=== PATIENT | female | born 1950 | race Caucasian/White ===

== ENCOUNTER 2022-12-07 06:48 | Outpatient (CLI) | payer MEDICARE, SELFPAY ==
--- NOTE | ~2022-12-07 | MR_ITS ---
EXAMINATION: MR brain/brain stem wo con DATE: 12/07/2022 07:50 INDICATION: Persistent vertigo. TECHNIQUE: Magnetic resonance imaging (MRI) of the brain and brainstem was performed without intraven ous contrast. COMPARISON: None. FINDINGS: There are scattered areas of nonspecific increased T2-weighted signal intensity in the cere bral white matter and colette, which is within normal limits for the patient's age. There is no intracra nial hemorrhage, acute infarction, or abnormal intracranial mass lesion. The ventricles are normal in size. The orbits are normal. There is mild mucosal thickening in the paranasal sinuses. The mastoid air cells are normal. IMPRESSION: 1. Normal aging brain. Reviewed, dictated and finalized at location A. SMAKER GARMENT FITTER IMPRESSION: 1. Normal aging brain.
== END 2022-12-07 06:49 | disposition home or self-care (01) ==
LOC: CHSIMG 06:50
PROVIDERS: PCP Family Medicine; Visit Provider Family Medicine
DX: R42 Dizziness and giddiness (principal)
CPT/HCPCS: 70551

== ENCOUNTER 2023-07-30 14:54 | Outpatient (CLI) | payer MEDICARE, SELFPAY ==
--- NOTE | 2023-07-30 15:00 | ECHO_ITS ---
Patient Info Name: Zoila Angulo Age: 73 years : 1950 Gender: Female Ht: 64 in Wt: 172 lbs BSA: 1.90 m2 HR: 85 bpm BP: 170 / 90 mmHg Heart Rhythm: Sinus Rhythm Technical Quality: Good Exam Date: 07/30/2023 2:50 PM Exam Location: [facility] Patient Status: Outpatient Admit Date: 07/30/2023 Staff Ordering Physician: Alpesh Mead MD Community Development Aide: Jaya Lynch RDCS Attending Provider: Alpesh Mead MD Referring Physician: Boston BAIG; Exam Type: CA echo doppler color flow Study Info Indications - localized edema Complete two-dimensional, color flow and Doppler transthoracic echocardiogram is performed. Summary 1. Complete two-dimensional, color flow and Doppler transthoracic echocardiogram is performed. 2. Left ventricular chamber dimension is normal. 3. Left ventricular systolic function is normal, estimated at 60-65%. 4. The left ventricular diastolic function is abnormal. 5. E/e' 12 is mildly elevated. 6. There is mild to moderate mitral valve regurgitation. 7. There is mild tricuspid valve regurgitation. 8. No pulmonary hypertension, estimated pulmonary arterial systolic pressure is 30 mmHg. Left Ventricle E/e' 12 is mildly elevated. Left ventricular chamber dimension is normal. Left ventricular systolic function is normal, estimated at 60-65%. The left ventricular diastolic function is abnormal. Right Ventricle Right ventricular systolic function is normal and with normal TAPSE 2.5 cm. Right ventricular chamber dimension is normal. Left Atria Left atrial chamber dimension is normal. Right Atria Right atrial chamber dimension is normal. Aortic Valve The aortic valve is trileaflet. There is no aortic valve stenosis. There is no aortic valve regurgitation. Pulmonic Valve There is no pulmonic regurgitation. Mitral Valve There is no mitral valve stenosis. There is mild to moderate mitral valve regurgitation. Tricuspid Valve There is mild tricuspid valve regurgitation. No pulmonary hypertension, estimated pulmonary arterial systolic pressure is 30 mmHg. Pericardium/Pleural There is no pericardial effusion. Inferior Vena Cava Normal inferior vena cava with >50% collapse upon inspiration consistent with normal right atrial pressure, 5 mmHg. Aorta The aortic root size at the sinus of Valsalva is normal. Left Ventricular Outflow Tract Name Value Normal LVOT 2D LVOT Diameter 1.9 cm LVOT Doppler LVOT Peak Velocity 87 cm/s LVOT Peak Gradient 3 mmHg LVOT Mean Gradient 2 mmHg LVOT VTI 26 cm LVOT VTI/AV VTI Ratio 0.8 LVOT Stroke Volume 75 ml Pulmonic Valve Name Value Normal RVOT Doppler RVOT Peak Gradient 1 mmHg PV Doppler
== END 2023-07-30 14:55 | disposition home or self-care (01) ==
LOC: CHSIMG 14:55
PROVIDERS: PCP Family Medicine; Visit Provider Family Medicine
DX: R60.0 Localized edema (principal); I08.1 Rheumatic disorders of both mitral and tricuspid valves
CPT/HCPCS: 93306

== ENCOUNTER 2024-12-23 10:05 | Outpatient (CLI) | payer MEDICARE, SELFPAY ==
--- NOTE | ~2024-12-23 | XR_ITS ---
XR chest 2V Ordering provider: Alpesh Mead MD History: 74 years Female with . Subacute Cough X5DAYS . Comparison: None. FINDINGS: MEDIASTINUM: The cardiac silhouette is not enlarged. LUNGS: No effusions or pneumothorax. Minimal opacification in the left lung base medially which may i ndicate atelectasis versus pneumonia. Follow-up advised. 5 mm Small nodule in the right midzone perip herally. 3 months follow-up advised. OTHER: No free air under the diaphragm. IMPRESSION: Left basal atelectasis versus pneumonia. 5 mm nodule in the right midzone. 3 months follow-up x-rays advised. Reviewed, dictated and finalized at location A. PICKER
[2024-12-23 10:43] LABS: Basophils Absolute Auto 0.04 K/mm3 (0.00-0.10); Basophils Percent Auto 0.2 % (0.0-1.0); Eosinophils Absolute Auto 0.01 K/mm3 (0.02-0.50); Eosinophils Percent Auto 0.1 % (1.0-6.0); Hematocrit 35.7 % (35.0-42.0); Hemoglobin 11.8 g/dL (11.7-13.8); Immature Granulocyte Absolute 0.11 K/mm3 (0.00-0.00); Immature Granulocyte Percent A 0.6 % (0.0-0.0); Lymphocytes Absolute Auto 0.81 K/mm3 (1.10-4.50); Lymphocytes Percent Auto 4.7 % (18.0-42.0); Mean Corpuscular HGB Conc 33.1 g/dL (32-36); Mean Corpuscular Hemoglobin 29.7 pg (27.0-31.0); Mean Corpuscular Volume 89.9 fL (78.0-102.0); Mean Platelet Volume 10.3 fl (9.2-11.8); Monocytes Absolute Auto 1.72 K/mm3 (0.10-0.90); Neutrophils Absolute Auto 14.44 K/mm3 (1.70-7.20); Neutrophils Percent Auto 84.4 % (50.0-70.0); Platelet Count Result 189 K/mm3 (150-420); Red Blood Count 3.97 M/mm3 (4.20-5.40); Red Cell Distribution Width 12.6 % (11.6-14.4); White Blood Count 17.1 K/mm3 (4.8-10.8)
[2024-12-23 10:52] LABS: Add Urine Microscopic? YES; Appearance Urine Cloudy (Clear); Bilirubin Urine Negative (Negative); Blood Urine 2+ (Negative); Color Urine Yellow (Yellow); Glucose Urine UA Negative (Negative); Ketones Urine 1+ (Negative); Leukocyte Esterase Ur 3+ LEU/UL (Negative); Nitrate Urine Positive (Negative); Protein Urine 2+ (Negative); Urobilinogen Urine 0.2 mg/dL (0.2-1.0); pH Urine 7.5 (5.0-8.0)
[2024-12-23 10:55] LABS: RBC Urine None seen /hpf (0-2)
[2024-12-23 10:56] LABS: Bacteria Urine 2+ /hpf; Renal Epithelial Cells Urine Few /hpf; Squamous Epithelial Cell Urine Few /hpf (Few); WBC Urine >75 /hpf (0-3)
--- OUTSIDE RECORDS SUMMARY | 2024-12-23 11:22 | XMS_ITS | Encounter Summary ---
Author Organization [facility] Address [facility] [place] [address] Care Team Providers Care Railroad Carman Name Role Phone Alpesh Mead MD Primary Care Provider [phone] Kathia Chen MD Unavailable Encounter Details Date Type Department Care Team (Latest Contact Info) Description 04/08/2024 MyChart Message Enc [facility] [address] [place] [address] Kathia Chen MD [address] [place] [address] Pulsatile Tinnitus Social History Tobacco Use Types Packs/Day Years Used Date Smoking Tobacco: Never Smokeless Tobacco: Never Comments Unknown Sex and Gender Information Value Date Recorded Sex Assigned at Female 11/14/2024 8:05 AM LOAN PROCESSOR Legal Sex Female 4:56 PM CDT Gender Identity Not on file Sexual Orientation Not on file documented as of this encounter Plan of Treatment Upcoming Encounters Date Type Department Care Team (Late st Contact Info) Description 10/30/2025 8:45 AM LOAN PROCESSOR Office Visit [facility] [address] Kathia Chen MD [address] [place] [address] documented as of this encounter Visit Diagnoses Not on filedocumented in this encounter Care Teams Railroad Carman Relationship Specialty Start Date End Date Aplesh Mead MD [address] [place], [place] [id number] PCP - General FAMILY PRACTICE 08/02/23 Kathia Chen MD [address] [place] [address] Consulting Physician CARDIOVASCULAR DISEASE 02/06/24 documented as of this encounter
--- OUTSIDE RECORDS SUMMARY | 2024-12-23 11:22 | XMS_ITS | Encounter Summary ---
Author Organization [facility] Address [facility] [place] [address] Care Team Providers Care Light Armored Vehicle Officer Name Role Phone Alpesh Mead MD Primary Care Provider [phone] Tristan Hall MD Unavailable Unavailabl e Adenike Pleitez APRN, IT SUPPORT CONSULTANT-C Unavailable [phone] Kathia Chen MD Unavailable Encounter Details Date Type Department Care Team (Latest Contact Info) Description 09/03/2023 GoodClict Message Enc [facility] [address] [place] [address] Adenike Pleitez APRN, IT SUPPORT CONSULTANT-C [address] [facility] [address] [place] [address] My one week follow up on Spironolactone 25mg Social History Tobacco Use Types Packs/Day Years Used Date Smoking Tobacco: Never Smokeless Tobacco: Never Comments Unknown Sex and Gender Information Value Date Recorded Sex Assigned at Female 11/14/2024 8:05 AM COOK ENCHILADA Legal Sex Female 4:56 PM CDT Gender Identity Not on file Sexual Orientation Not on file documented as of this encounter Plan of Treatment Upcoming Encounters Date Type Department Care Team (Late st Contact Info) Description 10/30/2025 8:45 AM COOK ENCHILADA Office Visit [facility] [place] [address] Kathia Chen MD [address] [place] [address] documented as of this encounter Visit Diagnoses Not on filedocumented in this encounter Care Teams Light Armored Vehicle Officer Relationship Specialty Start Date End Date Alpesh Mead MD [address] [place] [address] PCP - General FAMILY PRACTICE 08/02/23 Tristan Hall MD [address] [place] [address] Consulting Physician CARDIOVASCULAR DISEASE 08/24/23 Adenike Pleitez APRN, IT SUPPORT CONSULTANT-C [address] [facility] [address] [address] NURSE PRACTITIONER 08/24/23 02/05/24 Kathia Chen MD [address] [place] [address] Consulting Physician CARDIOVASCULAR DISEASE 02/06/24 documented as of this encounter
--- OUTSIDE RECORDS SUMMARY | 2024-12-23 11:22 | XMS_ITS | Referral Summary ---
Author Organization [facility] [address] [place] [address] Care Team Providers Care Test Engine Operator Name Role Phone Alpesh Mead MD Primary Care Provide r Encounters Date Type Department Care Team Description 10/17/2024 Telephone [facility] [address] [place] [phone] Alena Montoya LPN CTA head results and recommendations from Last 3 Months Allergies Active Allergy Reactions Criticality Noted Date Comments Codeine Other (See comments) Low 08/06/2024 Jittery/shaky Medications spironolactone (ALDACTONE) 50 mg tablet Take 1 tablet (50 mg total) by mouth daily Active oi-uaz-nzade acid-lutein 400-250 mcg tablet,chewable Take by mouth Active calcium izfs-U0-ioldqjk um tony 133 mg calcium -133 unit-67 mg capsule Take by mouth Active biotin 1 mg tablet Take 3 tablets (3,000 mcg total) by mouth 3 (three) times a day Active turmeric root extract 500 mg capsule Take 750 mg by mouth Active glucosamine HCl 1,500 mg tablet Take by mouth Active loratadine 10 mg capsule Take by mouth Activ e fluticasone propionate (FLONASE) 50 mcg/actuation nasal spray Administer 1 spray into each nostril daily Active Active Problems Problem Noted Date Diagnosed Date Tinnitus of left ear 08/06/2024 Assessment & Plan (08/06/2024 8:32 PM CDT): She continues to have pulsatile tinnitus involving her left ear for almost 2 years now. I think it is probably vascular in etiology. I discussed possibility such as a vascular loop or a dehiscent jugular bulb. I would like to evaluate with a temporal bone CT scan and after further discussion she would like to do this also. We will schedule it. I will call her with results and suggestions. A vascular loop would be better evaluated with an MRI scan of the IAC's. She has had a negative MRI scan of her head and I indicated this would be more specific. She understands. Neck pain on left side 08/06/2024 Assessment & Plan (08/06/2024 8:33 PM CDT): She describes neck pain high up in the left side of her neck and on exam she has slight tenderness over the area of the carotid artery. She also has a significant TMJ problem with popping. Both of these could be causing this pain. It also could be due to cervical strain. I am not sure if I have anything further to recommend for that. She still is bothered by her neck pain but it has significantly improved since the original onset in November of 2022. She could consider some physical therapy for this. Peripheral vertigo 08/06/2024 Assessment & Plan (08/06/2024 8:30 PM CDT): I suspect she may be suffering from benign positional vertigo. I talked with her about potential evaluation and treatment. She would like to go ahead and pursue that. Social History Tobacco Use Types Packs/Day Years Used Date Smoking Tobacco: Never Tobacco Cessation:Counseling Given: Not Answered Comments Unknown Sex and Gender Information Value Date Recorded Sex Assigned at Not on file Legal Sex Female 6:25 PM CORN SHELLER OPERATOR Gender Identity Not on file Sexual Orientation Not on file Last Filed Vital Signs Vital Sign Reading Time Taken Comments Blood Pressure - - Pulse - - Temperature - - Respiratory Rate 18 08/06/2024 3:05 PM CDT Oxygen Saturation - - Inhaled Oxygen Concentration - - Weight 76.7 kg (169 lb) 08/28/2024 11:49 AM CORN SHELLER OPERATOR Height 162.6 cm (5' 4 ) 08/28/2024 11:49 AM CORN SHELLER OPERATOR Body Mass Index 29.01 08/28/2024 11:49 AM CORN SHELLER OPERATOR Plan of Treatment Not on file Insurance [employer] MEDICARE Care Teams Test Engine Operator Relationship Specialty Start Date End Date Alpesh Mead MD [address] [place] [address] PCP - General Family Medicine 07/21/24
--- OUTSIDE RECORDS SUMMARY | 2024-12-23 11:22 | XMS_ITS | Data Portability ---
Author Organization [facility], [address] [place] [address] Neurology ([place]) Address [address] [place] [address] Care Team Providers Care Felt Hanger Name Role Phone GUME MAHER Driver Salesman DORIS LINO Driver Salesman Assessment Encounter Date Assessment Date Assessment LastModified by Organization Details LastModified Time 05/27/2024 05/27/2024 1. Acne: We discussed the diagnosis and treatment alternatives.Clind amycin gel was prescribed. Call for refill of Retin-A, continue spironolactone 50 mg per cardiology. . The patient was instructed to call if not improving with the prescribed regimen. Skin care was discussed. Side effects of topical retinoids including skin irritation and photosensitivity were discussed. The potential for allergic reaction was discussed.I asked her to apply a very thin film of this medication to the affected areas q.h.s. 20-30 minutes after washing the face. Should patient experience skin irritation, the frequency of application may be decreased to q.o. h.s. for a week or two and then increased to q.h.s. as tolerated. . Patient will call with any questions or problems regarding this medication. 2 cyst: We discussed the fact that these are benign lesions requiring no treatment. The patient was advised that more such lesions may develop. The patient is not bothered by the lesions and does not wish to have them treated. We will observe. Return in 1 year for recheck with Dr Jones. Zoila left without further questions or concerns. [email or web address] Not available 05/27/2024 17:12:14 Plan of Treatment Reminders Order Date Submit Date Provider Last Modified By Organization Details Last Modified Time Details Appointments Establis [facility] Patient 10.EST 2024 10:50A M Dr. Dona Jones Not available Not available Not available Lab None recorded . Referral None recorded . Procedures None recorded . Surgeries None recorded . Imaging MAMMO, screenin g, digital, bilatera l 2023 025 [email or web address] [place] Only - [place] Radiology, [address] [place] [address], [id number], 07/15/2024 12:50:39 Medication Orders clindamy curt 1 % topical gel 2023 024 [facility] 54 [facility], [address] [place], [address], 05/27/2024 17:11:22 Patient TargetsNo targets recorded. Patient Instructions Encounter Date Encounter Id Patient Instructions Last Modified By Organization Details Last Modified Time 07/15/2024 [id number] Pap smear guidelines discussed. No Pap smear required. Self-breast exam instructions reviewed. Healthy diet and exercise was encouraged. ROS completed and reviewed today. Patient states that she gets routine blood work annually through PCP. Mammogram screening recommended. I discussed with the patient that her last screening mammogram showed heterogeneously or extremely dense breast tissue. We discussed 50% of women have dense breasts and this can obscure small mass on mammogram and slightly increase the woman's risk of breast cancer. I explained that bilateral breast MRI or whole breast bilateral ultrasounds are recommended for those who have dense tissue along with 1 other risk factor. The patient does not have risk factors at this time. Tyrer-Cuzick breast cancer assessment score was calculated 2021, and her life time risk is 16%. Encouraged pt to remain up to date with colonoscopy screening. Bone health discussed. Encouraged calcium and vitamin D supplementation. Will repeat bone density scan 2025. Post-menopausal bleeding precautions were given. Patient to return to clinic in 1 year for annual or sooner if any issues. All questions were answered. [email or web address] Not available 07/15/2024 12:41:25 Reason for Referral None Reported. Results Created Date Observation Date Name Description Value Unit Range Abnormal Flag Note LastModifiedBy Organization Detail LastModifiedTime 07/15/2007/15/2024 MAMMO , scree esther, digit al, bilat eral [facility] [address] [address] Teleph one [phone] Name: SAMANTHA HARDY [id number] am Date: 2023 Age: 74Phys ician: JORGE MAHER AMANDA : 1Ex aminat ion: MAMM BILATE RAL DIGITA L SCREEN ING EXAM: MAMM BILATE RAL DIGITA L SCREEN ING, MAMM SCREEN ING TOMOSY NTHESI S ACCESS ION: [id number], [id number] EXAM DATE: 024 10:45 AM HISTOR Y: Screen ing. COMPAR AKILA: Prior studie s dating back to 05/27/20 20. DENSIT Y: The breast s are hetero geneou sly dense, which may obscur e small masses . FINDIN GS: 2D digita l compos ite views as well as 3D digita l tomosy nthesi s views were perfor med. There are no suspic ious masses , calcif icatio ns, or areas of margarita ectura l distor tion. IMPRES STANISLAV: There is no mammog raphic eviden ce of malign ney. ASSESS MENT: BI-RAD S 1: Negati ve. RECOMM ENDATI ON: 1. Screen ing Mammog andrés Bilate ral in 1 year. COMMEN TS: The patien t will be entere d into an automa rafael remind er system for a screen ing mammog andrés in 1 year. The patien t has been or will be contac rafael with the result s of this exam. Electr onical ly signed in Sharp cribe by: Abel Daly MD on:06/23 10:29 AM cc: Page PAGE 1 of NUMPAG ES 1 [email or web address] [place] Only - [place] Radiology [address] [place] [address], [address], 07/15/2024 12:50:51 Result Notes None recorded. Problems Name Problem SNOMED Code Status Onset Date Resolution Date Notes Provider Name and Address Organization Details Recorded Time Epidermoid cyst 766756774 Active 024 Mitchel Zhang PA-C [address] [place] [address], [phone], [facility] 4 16:21:08 Acne 37850646 Active 024 Kermit Flores [facility] 4 16:54:55 Osteopenia 431974332 Active 024 Gume Maher PA-C [address] [place] [address], [phone], [facility] 4 12:38:29 Heart murmur 37125411 Active 024 Gume Maher PA-C [address] [place] [address], [phone], [facility] 4 12:41:29 Problem Notes None recorded. Procedures Surgical History Date Name Laterality Status Provider Name and Address Organization Details Recorded Time Colonoscopy with biopsy completed Not Available Health Note 05/20/2024 17:41:53 biopsy of breast completed Gume Bowman [facility] 07/14/2024 20:05:30 Imaging Results Imaging Date Name Status LastModified by Organiz ation Details LastModified Time 07/15/2024 MAMMO, screening, digital, bilateral completed [address] Only - [place] Radiology [facility], [address], 07/15/2024 12:50:51 Procedure Notes None recorded. Medical Equipment None Reported. Allergies Allergen ID Allergen Name Allergen Category Reaction Reaction Severity Criticality Documentation Date Start Date Code Code System Note Provider Name and Address Organization Details Recorded Time 496334 codeine medicatio n Not available Not available Not available 11/19/20232011 2670 RxNorm Not Available Not Available Not Available Medications Name Sig Start Date Stop Date Status Note LastModified by Organization Details LastModified Time tretinoin 0.1 % topical cream APPLY SPARINGLY TO AFFECTED AREA(S) ONCE DAILY AT BEDTIME. active Not Available Not Available No t Available spironolact one 25 mg tablet TAKE 1 TABLET BY MOUTH ONCE DAILY 07/15 completed Not Available Not Available Not Available clindamycin 1 % topical gel APPLY A THIN LAYER OF GEL TO THE AFFECTED AREA(S) TWICE DAILY NEEDED active Not Available Not Available No t Available fluticasone propionate 50 mcg/actuati on nasal spray,suspe nsion USE 1-2 SPRAYS IN EACH NOSTRIL ONCE DAILY NEEDED active Not Available Not Available No t Available spironolact one 50 mg tablet TAKE 1 TABLET BY MOUTH ONCE DAILY active Not Available Not Available No t Available Vitals Date Recorded Body height Body mass index (BMI) Body weight Heart rate Oxygen saturation Oxygen saturation in Arterial blood by Pulse oximetry Systolic blood pressure Diastolic blood pressure Provider Name and Address Organization Details Last Updated DateTime 4 162.56 cm 29.5 kg/m2 93603.8 9 g 77 /min 99 % 99 % 156 mm[Hg] 76 mm[Hg] Kermit Flores [facility] 4 16:06:18 Date Recorded Body height Body mass index (BMI) Body weight Systolic blood pressure Diastolic blood pressure Provider Name and Address Organization Details Last Updated DateTime 07/15/2024 162.56 cm 29.5 kg/m2 32598.89 g 126 mm[Hg] 80 mm[Hg] Gume Bowman [facility] 4 11:35:05 Social History Question Answer Notes LastModified by Organizat ion Details LastModified Time Tobacco Smoking Status Never Smoker Gume Bowman [facility] 07/15/2024 11:31:59 Do You Have An Advance Directive? Yes [email or web address] Information not available 05/20/2024 What Is Your Level Of Alcohol Consumption? None [email or web address] Information not available 05/20/2024 What Is Your Level Of Caffeine Consumption? Occasional [email or web address] Information not available 05/20/2024 What Is Your Code Status? Full Code [email or web address] Information not available 05/20/2024 Are You Currently Employed? No [email or web address] Information not available 05/20/2024 What Is Your Occupation? Retired [email or web address] Information not available 05/20/2024 How Many Times Per Week Do You Exercise? 3-4 Times Per Week [email or web address] Information not available 05/20/2024 Do You Have A Medical Power Of Meter Readers Supervisor? Yes [email or web address] Information not available 05/20/2024 What Was The Date Of Your Most Recent Tobacco Screening? 05/27/2024 [email or web address] Information not available 05/20/2024 What Is Your Relationship Status? Single [email or web address] Information not available 05/20/2024 Do You Use Any Illicit Or Recreational Drugs? No [email or web address] Information not available 05/20/2024 Sex: Unknown Functional Status Question Answer Note LastModified by Organization D etails LastModified Time What is your exercise level? Moderate [email or web address] Information not available 05/20/2024 Mental Status None recorded. Family History Relationship Description Onset Age of this Age Resolved Age Notes LastModified by Organization Details LastModified Time Mother Alzheimer's disease [email or web address] Not available 2023 17:41:53 Mother Hypertensive disorder [email or web address] Not available 2023 17:41:53 Sister Hypercholest erolemia [email or web address] Not available 2023 17:41:53 Sister Malignant neoplasm of female breast dx at 51 [email or web address] Not available 07/14/2024 20:07:03 Sister Malignant neoplasm of female breast dx at 63 [email or web address] Not available 07/14/2024 20:07:08 Father Diabetes mellitus [email or web address] Not available 07/14 20:05:45 Father Family history of cancer of colon [email or web address] Not available 07/14 20:05:55 Paternal Grandmother Malignant neoplasm of female breast dx in her 70's Not available 07/14/2024 20:06:42 Medical History Condition Response High Blood Pressure N COPD N Depression N Anxiety Disorder N Arthritis N Cancer N Stroke N Fibromyalgia N Kidney Disease N Bleeding Disorder N Asthma N Seizures N Attention-deficit Hyperactivity Disorder N Thyroid Problems N Anemia N Diabetes N Hyperlipidemia N Heart Disease N Osteoporosis N Gynecological HistoryNo gynecological history recorded. Obstetrics History GPAL:G 0 P 0 0 0 0 Past Encounters Encounter ID Performer Location Encounter Start Date Encounter Closed Date Diagnosis/Indication Diagnosis SNOMED-CT Code Diagnosis ICD10 Code Diagnosis Note [id number] ZOILA Patel D[facility] ([place]) [address] [place] [address] [place] [address] 05/27/2024 15:50:31 05/27/2024 16:15:02 Epidermoid cyst 912418837 L72.0 Acne 88854535 L70.9 [id number] Doris Lino MD 900 [facility] OBGYN ([place]) [address] [place] [address] 07/15/2024 11:27:12 07/15/2024 12:55:33 Routine gynecologic examination 753162546 Z01.419 Additional diagnosis detail: Women's annual routine gynecologi ileana examinatio n Screening mammography 24 375577 Z12.31 Additional diagnosis detail: Screening mammogram for breast cancer Health Concerns Section Related Observation LastModified by Organization Detai ls LastModified Time None Recorded Concern Status LastModified by Organization Details LastModified Time None Recorded Advance Directives Directive Y: Payers Encounter Date Sequence Insurance Name Policy Number Policy Navarrete Covered Member ID Navarrete Member ID Guarantor Name 05/27/2024 1 [employer] (MEDICARE REPLACEMENT PPO) [id number] 1 Zoila Angulo [id number] Zoila Angulo 07/15/2024 1 [employer] (MEDICARE REPLACEMENT PPO) [id number] Zoila Angulo [id number] Zoila Angulo Notes Date Note Type Note Provider Name and Address Organization Details Recorded Time 05/27/2024 text/html {{EPV* NPV - Ref er to Dermatology Patient History form in the EHR and has been reviewed and signed. Please refer to this form for Past Medical History, Family History, and additional Social History.}} Date last seen: 12/21/2021 Gown: No Patient presents today for a recheck of acne. Date last seen for acne: 12/21/2021 Current prescription medications used and frequency: Tretinoin 0.1% cream Areas of involvement: Cheeks Current over the counter products used: Neutrogena wash, CeraVe moisturizer/sunscreen Problems with acne medications: {{Yes- No*}} Progress of acne since last visit: Flaring Other concerns: Lesion on back - Several years, asymptomatic Ms. Angulo was informed that Dr. Jones is the supervising physician for MITCHEL ZHANG (Derm) and the physician is in the office available for consultation. History of Present Illness documented by nursing staff, verified and amended as necessary by the attending provider who electronically signs this note. Mitchel Zhang PA-C [address] [place] [address], [phone], [facility] 05/27/2024 17:12:35 07/15/2024 text/html Patient here for : annual examShe is a P:2 Patient complaints: nonePatient denies pelvic pain, abnormal vaginal discharge, breast problems, urinary symptoms, vasomotor symptoms, mood changes and bowel problems. Smoking status: Not a smokerThe patient completes self-breast exams: YesThe patient has adequate calcium intake: YesThe patient eats healthy diet: YesThe patient exercises routinely: Yes Post menopausal, no bleeding STD screening: DeclinesSexually active: Yes Changes in medical/surgical history since her last office visit: NoHereditary Breast and Ovarian cancer screen: 3Changes in [facility] h/o since last HBOCS form was completed: No Last Mammogram: 07/15/2024Last Bone Density: 04/18/2016, osteopenia, 10 year follow upLast Colonoscopy: 2016 per patient Last pap: 03/25/2015 performed by: DANTE result: Negative, Negative HR HPVHistory of Abnormal pap: No History of Gestational Diabetes: NoHistory of Gestational Hypertension: No Hepatitis C: NoGardasil: N/A Gume Maher PA-C [address] [place] [address], [phone], [facility] 07/16/2024 08:37:42 OBGyn Episode No OBEpisode recorded.
--- OUTSIDE RECORDS SUMMARY | 2024-12-23 11:22 | XMS_ITS | Clinical Summary ---
Author Organization [facility] [address] [place] Address [address] [place] [address] Care Team Providers Care Access Analyst Name Role Phone Alpesh Mead MD Primary Care Provide r Allergies Active Allergy Reactions Criticality Noted Date Comments Codeine Other (See comments) Low 08/06/2024 Jittery/shaky Medications spironolactone (ALDACTONE) 50 mg tablet Take 1 tablet (50 mg total) by mouth daily Active ec-hvm-lsrzl acid-lutein 400-250 mcg tablet,chewable Take by mouth Active calcium dwkh-F1-tlrnoab um tony 133 mg calcium -133 unit-67 [...] like to go ahead and pursue that. Encounters Date Type Department Care Team Description 10/17/2024 Telephone [facility] Otolaryngology [address] [place] [phone] Alena Montoya LPN CTA head results and recommendations from Last 3 Months Surgical History Surgery Date Site/Laterality Comments COLONOSCOPY 10/22/2018 - 10/21/2019 Medical History Medical History Date Comments Allergies Tinnitus Pulsatile Dizziness Family History Medical History Relation Name Comments Diabetes Brother Cancer Father colon Cancer Paternal Grandmother breast (mastectomy) Cancer Sister Breast X 2 sist ers Relation Name Status Comments Brother Father Paternal Grandmother Sister Social History Tobacco Use Types Packs/Day Years Used Date Smoking Tobacco: Never Tobacco Cessation:Counseling Given: Not Answered Comments Unknown Sex and Gender Information Value Date Recorded Sex Assigned at Not on file Legal Sex Female 6:25 PM NECK BAND SETTER Gender Identity Not on file Sexual Orientation Not on file Obstetrics History Last Filed Vital Signs Vital Sign Reading Time Taken Comments Blood Pressure - - Pulse - - Temperature - - Respiratory Rate 18 08/06/2024 3:05 PM CDT Oxygen Saturation - - Inhaled Oxygen Concentration - - Weight 76.7 kg (169 lb) 08/28/2024 11:49 AM NECK BAND SETTER Height 162.6 cm (5' 4 ) 08/28/2024 11:49 AM NECK BAND SETTER Body Mass Index 29.01 08/28/2024 11:49 AM NECK BAND SETTER Plan of Treatment Health Maintenance Due Date Last Done Comments Breast Cancer Screening-Mammogram 1951 Colon Cancer Screening-Colonoscopy 1950 Depression Screening 1951 Fall Risk Assessment 1950 Hepatitis C Screening 1950 Osteoporosis Screening-Bone Density Scan 1951 Hepatitis B Screening 1969 Pneumococcal vaccine 65+ (1 of 1 - PCV) 2001 Well Visit 65+ 02/19/2016 Covid-19 Vaccine (2023-2 5 season) 2025 07/23/2024, 08/24/2023, 08/19/2022, Additional history exists DTaP/Tdap/Td Vaccine (2 - Td or Tdap) 06/01/2027 06/01/2017 Zoster Vaccine Completed 06/18/2022, 02/19, 05/06/2013 Influenza Vaccine Completed 07/23/2024, , 08/19/2022, Additional history exists Insurance [employer] MEDICARE [facility] MED[facility] Address: [facility] [id number] [place] [phone] Care Teams Access Analyst Relationship Specialty Start Date End Date Alpesh Mead MD [address] [place] [address] PCP - General Family Medicine 07/21/24
--- OUTSIDE RECORDS SUMMARY | 2024-12-23 11:22 | XMS_ITS | Encounter Summary ---
Author Organization [facility] Address [facility]ly [facility] [place] [address] Care Team Providers Care Hospital Technician Name Role Phone Alpesh Mead MD Primary Care Provider [phone] Tristan Hall MD Unavailable Unavailabl e Adenike Pleitez APRN, [employer]-[facility] Unavailable Kathia Chen MD Unavailable Encounter Details Date Type Department Care Team (Late st Contact Info) Description 10/31/2023 MyChart Message Enc [facility] eld [address] [place] [address] Adenike Pleitez APRN, [employer]-C [address] [facility] [address] [place] [address] Labs Social History Tobacco Use Types Packs/Day Years Used Date Smoking Tobacco: Never Smokeless Tobacco: Never Comments Unknown Sex and Gender Information Value Date Recorded Sex Assigned at Female 11/14/2024 8:05 AM AMUSEMENT OR RECREATION CARD CHECKER Legal Sex Female 4:56 PM CDT Gender Identity Not on file Sexual Orientation Not on file documented as of this encounter Plan of Treatment Upcoming Encounters Date Type Department Care Team (Late Contact Info) Description 10/30/2025 8:45 AM AMUSEMENT OR RECREATION CARD CHECKER Office Visit [facility] [place] [address] Kathia Chen MD [address] [place] [address] documented as of this encounter Visit Diagnoses Not on filedocumented in this encounter Care Teams Hospital Technician Relationship Specialty Start Date End Date Alpesh Mead MD [address] [place] [address] PCP - General FAMILY PRACTICE 08/02/23 Tristan Hall MD [address] [place] [address] Consulting Physician CARDIOVASCULAR DISEASE 08/24/23 Adenike Pleitez, GUME, [facility] [employer]-C [address] [facility] [address] [place] [address] NURSE PRACTITIONER 08/24/23 02/05/24 Kathia Chen MD [address] [place] [address] Consulting Physician CARDIOVASCULAR DISEASE 02/06/24 documented as of this encounter
--- OUTSIDE RECORDS SUMMARY | 2024-12-23 11:22 | XMS_ITS | Clinical Summary ---
Author Organization [facility] Address [address] [place] [address] Care Team Providers Care Department Mgr Name Role Phone Alpesh Mead MD Primary Care Provider [phone] Kathia Ventura MD Unavailable Allergies Active Allergy Reactions Criticality Noted Date Comments Codeine GI Upset,Shakiness 08/24/2023 Medications tretinoin (RETIN-A) 0.1 % cream APPLY CREAM SPARINGLY TO AFFECTED AREA(S) ONCE DAILY AT BEDTIME. 3 Active spironolactone (ALDACTONE) 50 MG tablet Take 1 tablet by mouth once daily 90 tablet 4 Active Active Problems Problem Noted Date Diagnosed Date Mitral regurgitation 08/24/2023 Encounters Date Type Department Care Team Description 11/14/2024 8:30 AM WEIGHER PRODUCTION Office Visit [facility] [address] [place] [phone] Kathia Ventura MD Heart Problem 11/14/2024 8:05 AM WEIGHER PRODUCTION - 11/14/2024 11:59 PM WEIGHER PRODUCTION Hospital [facility] [place] [address] Kathia Ventura MD Discharge Disposition: Home or Self Care (Routine Discharge) 11/14/2024 Travel 11/12/2024 Orders Only [facility] eld [address] [place] [address] Kathia Ventura MD 10/06/2024 1:08 PM WEIGHER PRODUCTION - 10/06/2024 11:59 PM WEIGHER PRODUCTION Hospital Encounter [place] [address] [place] [address] Edgard Pascal MD Discharge Disposition: Home or Self Care (Routine Discharge) 10/06/2024 Travel from Last 3 Months Family History Medical History Relation Comments Cancer Father Dementia Mother Relation Status Comments Father Mother Social History Tobacco Use Types Packs/Day Years Used Date Smoking Tobacco: Never Smokeless Tobacco: Never Tobacco Cessation:Counseling Given: Not Answered Alcohol Use Standard Drinks/Week Comments Not Currently 0 (1 standard drink = 0.6 oz pur e alcohol) Comments Unknown Sex and Gender Information Value Date Recorded Sex Assigned at Female 11/14/2024 8:05 AM WEIGHER PRODUCTION Legal Sex Female 4:56 PM CDT Gender Identity Not on file Sexual Orientation Not on file Last Filed Vital Signs Vital Sign Reading Time Taken Comments Blood Pressure 131/66 11/14/2024 11:47 AM WEIGHER PRODUCTION Pulse 76 11/14/2024 11:47 AM WEIGHER PRODUCTION Temperature - - Respiratory Rate 18 11/14/2024 11:47 AM WEIGHER PRODUCTION Oxygen Saturation 96% 11/14/2024 11:47 AM WEIGHER PRODUCTION Inhaled Oxygen Concentration - - Weight 79.8 kg (176 lb) 11/14/2024 11:47 AM WEIGHER PRODUCTION Height 162.6 cm (5' 4 ) 11/14/2024 11:47 AM WEIGHER PRODUCTION Body Mass Index 30.21 11/14/2024 11:47 AM WEIGHER PRODUCTION Plan of Treatment Upcoming Encounters Date Type Department Care Team (Late st Contact Info) Description 10/30/2025 8:45 AM WEIGHER PRODUCTION Office Visit [facility] [address] [place] [phone] Kathia Ventura MD [address] [place] [address] Health Maintenance Due Date Last Done Comments Colorectal Cancer Screening Colonoscopy (10 Years) 1950 Pneumococcal Vaccine: 65+ Years (1 of 2 - PCV) 1957 Hepatitis C 1969 Mammogram Screening 1991 RSV Immunization or 60+ Years (1 - Risk 60-74 years 1-dose series) 2011 Annual Medicare Wellness Visit 02/19/2016 Dexa Scan (General) 02/19/2016 COVID-19 Vaccine ( season) 2024 08/19/2022, 03/03/2022, 08/12/2021, Additional history exists Influenza Adult (#1) 2024 08/24/2023, 08/10/2020, 08/22/2019, Additional history exists DTaP, Tdap and Td Vaccines (2 - Td or Tdap) 06/01/2027 06/01/2017 Zoster Vaccines Completed 06/18/2022, 02/19, 05/06/2013 Meningococcal B Vaccine Aged Out No l onger eligible based on patient's age to complete this topic Meningococcal Vaccine Aged Out No supriya katty eligible based on patient's age to complete this topic RSV Immunizations Under 20 Months Aged Out No longer eligible based on patient's age to complete this topic Procedures Procedure Name Priority Date/Time Associated Diagnosis Comments ECG 12-LEAD Routine 11/14/2024 8:14 AM WEIGHER PRODUCTION Nonrheumatic mitral valve regurgitation Procedure Note - 11/14/2024 8:14 AM CSTThis note is in progress. [address] [place] [address] Test Date: 2024-11-14 Pat Name: LYNN ANGULO Department: 3 Room: Gender: Female Vat Operator: : 1950 Requested By: KATHIA VENTURA Order Number: [id number] Reading MD: Measurements Intervals Bigelow Rate: 75 P: 86 AK: 192 QRS: 84 QRSD: 75 T: 78 QT: 372 QTc: 416 Interpretive Statements SINUS RHYTHM WITH FREQUENT SUPRAVENTRICULAR PREMATURE COMPLEXES ABNORMAL RHYTHM ECG CTA HEAD Routine 10/06/2024 2:02 PM WEIGHER PRODUCTION Tinnitus of left ear Cavernous sinus syndrome from Last 3 Months Results * CTA HEAD (10/06/2024 2:02 PM WEIGHER PRODUCTION) Anatomical Region Laterality Modality Head Computed Tomogra phy 10/13/2024 8:49 AM WEIGHER PRODUCTION Impressions 10/13/2024 9:54 AM WEIGHER PRODUCTION IMPRESSION: Patent intracranial arterial vasculature. Ordered By: EDGARD PASCAL Interpreted By: Jacob Portillo MD, 10/13/2024 8:49 AM Narrative 10/13/2024 9:54 AM WEIGHER PRODUCTION [address] [place] [address] Examination: CTA HEAD, 10/06/2024 2:02 PM. Technique: Computed tomographic images of the head were obtained after the administration of 93 mL of Isovue-370 injected through the IV, without evidence of an adverse reaction. Additional coronal and sagittal reformatted as well as maximum intensity projection images were generated at a separate workstation. A dose lowering technique was used for this procedure, which may include, but is not limited to, dose reduction technique, automated exposure control, the use of iterative reconstruction, and ALARA (As Low As Reasonably Achievable) / Image Gently techniques. Clinical history: Tinnitus, left ear, fullness of left cavernous sinus seen on prior CT IAC Comparison: CT IACs 08/18/2024 Findings: The petrous and cavernous portions of the internal carotid arteries are patent. Anterior cerebral arteries are patent. The middle cerebral arteries are patent. Codominant vertebral artery posterior circulation. The basilar artery is patent. Prominent posterior communicating arteries bilaterally. There is no extra-axial fluid collection. Preserved quintanilla-white matter differentiation. The basal cisterns appear normal. Orbital contents appear normal. Paranasal sinuses and mastoid air cells are well aerated. Procedure Note Jacob Portillo MD - 10/13/[address] [place] [address] Examination: CTA HEAD, 10/06/2024 2:02 PM. Technique: Computed tomographic images of the head were obtained after theadministration of 93 mL of Isovue-370 injected through the IV, withoutevidence of an adverse reaction. Additional coronal and sagittalreformatted as well as maximum intensity projection images were generatedat a separate workstation. A dose lowering technique was used for thisprocedure, which may include, but is not limited to, dose reductiontechnique, automated exposure control, the use of iterativereconstruction, and ALARA (As Low As Reasonably Achievable) / Image Gentlytechniques. Clinical history: Tinnitus, left ear, fullness of left cavernous sinusseen on prior CT IAC Comparison: CT IACs 08/18/2024 Findings: The petrous and cavernous portions of the internal carotid arteries arepatent. Anterior cerebral arteries are patent. The middle cerebralarteries are patent. Codominant vertebral artery posterior circulation.The basilar artery is patent. Prominent posterior communicating arteriesbilaterally. There is no extra-axial fluid collection. Preserved quintanilla-white matterdifferentiation. The basal cisterns appear normal. Orbital contents appearnormal. Paranasal sinuses and mastoid air cells are well aerated. IMPRESSION: Patent intracranial arterial vasculature. Ordered By: EDGARD PASCAL Interpreted By: Jacob Portillo MD, 10/13/2024 8:49 AM us Edgard Pascal MD CT Final Result from Last 3 Months Insurance [employer] Care Teams Department Mgr Relationship Specialty Start Date End Date Alpesh Mead MD [address] [place] [address] PCP - General FAMILY PRACTICE 08/02/23 Kathia Ventura MD [address] [place] [address] Consulting Physician CARDIOVASCULAR DISEASE 02/06/24
--- OUTSIDE RECORDS SUMMARY | 2024-12-23 11:22 | XMS_ITS | Encounter Summary ---
Author Organization [facility] Address [facility] [place] [address] Care Team Providers Care Head Men'S Golf Coach Name Role Phone Alpesh Mead MD Primary Care Provider [phone] Kathia Chen MD Unavailable Encounter Details Date Type Department Care Team (Latest Contact Info) Description 04/29/2024 MyChart Message Enc [facility] [address] [place] [address] Kathia Chen MD [address] [place] [address] Results of my Blood Tests Social History Tobacco Use Types Packs/Day Years Used Date Smoking Tobacco: Never Smokeless Tobacco: Never Alcohol Use Standard Drinks/Week Comments Not Currently 0 (1 standard drink = 0.6 oz pur e alcohol) Comments Unknown Sex and Gender Information Value Date Recorded Sex Assigned at Female 11/14/2024 8:05 AM HOME SPECIALIST Legal Sex Female 4:56 PM CDT Gender Identity Not on file Sexual Orientation Not on file documented as of this encounter Plan of Treatment Upcoming Encounters Date Type Department Care Team (Late st Contact Info) Description 10/30/2025 8:45 AM HOME SPECIALIST Office Visit [facility] [address] [place] [address] Kathia Chen MD [address] [place] [address] documented as of this encounter Visit Diagnoses Not on filedocumented in this encounter Care Teams Head Men'S Golf Coach Relationship Specialty Start Date End Date Alpesh Mead MD [address] [place] [address] PCP - General FAMILY PRACTICE 08/02/23 Kathia Chen MD [address] [place] [address] Consulting Physician CARDIOVASCULAR DISEASE 02/06/24 documented as of this encounter
--- OUTSIDE RECORDS SUMMARY | 2024-12-23 11:22 | XMS_ITS | Encounter Summary ---
Author Organization [facility] Address [facility] [place] [address] Care Team Providers Care Circuit Board Inspector Name Role Phone Alpesh Mead MD Primary Care Provider [phone] Kathia Chen MD Unavailable Encounter Details Date Type Department Care Team (Late Contact Info) Description 05/13/2024 [employer] Message [facility] ie [address] [place] [phone] [facility] Provider Lab results Social History Tobacco Use Types Packs/Day Years Used Date Smoking Tobacco: Never Smokeless Tobacco: Never Alcohol Use Standard Drinks/Week Comments Not Currently 0 (1 standard drink = 0.6 oz pur e alcohol) Comments Unknown Sex and Gender Information Value Date Recorded Sex Assigned at Female 11/14/2024 8:05 AM BRYOLOGIST Legal Sex Female 4:56 PM CDT Gender Identity Not on file Sexual Orientation Not on file documented as of this encounter Plan of Treatment Upcoming Encounters Date Type Department Care Team (Late Contact Info) Description 10/30/2025 8:45 AM BRYOLOGIST Office Visit [facility] [place] [phone] Kathia Chen MD [address] [place], [place] [address] documented as of this encounter Visit Diagnoses Not on filedocumented in this encounter Care Teams Circuit Board Inspector Relationship Specialty Start Date End Date Alpesh Mead MD [address] [place] [address] PCP - General FAMILY PRACTICE 08/02/23 Kathia Chen MD [address] [place] [address] Consulting Physician CARDIOVASCULAR DISEASE 02/06/24 documented as of this encounter
--- OUTSIDE RECORDS SUMMARY | 2024-12-23 11:22 | XMS_ITS | Encounter Summary ---
Author Organization [facility] Address [facility] [place] [address] Care Team Providers Care Food Service Representative Name Role Phone Alpesh Mead MD Primary Care Provider [phone] Kathia Chen MD Unavailable Encounter Details Date Type Department Care Team (Late Contact Info) Description 04/22/2024 [employer] Message [facility] ie [address] [place] [phone] [facility] Provider echo Social History Tobacco Use Types Packs/Day Years Used Date Smoking Tobacco: Never Smokeless Tobacco: Never Alcohol Use Standard Drinks/Week Comments Not Currently 0 (1 standard drink = 0.6 oz pur e alcohol) Comments Unknown Sex and Gender Information Value Date Recorded Sex Assigned at Female 11/14/2024 8:05 AM SPEECH COMMUNICATION INSTRUCTOR Legal Sex Female 4:56 PM CDT Gender Identity Not on file Sexual Orientation Not on file documented as of this encounter Plan of Treatment Upcoming Encounters Date Type Department Care Team (Late Contact Info) Description 10/30/2025 8:45 AM SPEECH COMMUNICATION INSTRUCTOR Office Visit [facility] [place] [place] [phone] Kathia Chen MD [address] [place] [address] documented as of this encounter Visit Diagnoses Not on filedocumented in this encounter Care Teams Food Service Representative Relationship Specialty Start Date End Date Alpesh Mead MD [address] [place] [address] PCP - General FAMILY PRACTICE 08/02/23 Kathia Chen MD [address] [place] [address] Consulting Physician CARDIOVASCULAR DISEASE 02/06/24 documented as of this encounter
[2024-12-23 11:42] LABS: Alanine Aminotransferase 30 U/L (14-59); Albumin Level 2.8 g/dL (3.4-5.0); Alkaline Phosphatase 116 U/L (46-116); Amylase 20 U/L (25-115); Anion Gap 9 mmol/L (4-12); Aspartate Amino Transferase 22 U/L (15-37); Bilirubin,Total 0.9 mg/dL (0.00-1.00); Blood Urea Nitrogen 22 mg/dL (7-18); Carbon Dioxide 28 mmol/L (21-32); Chloride 93 mmol/L (98-108); Estimated Glomerular Filt Rate 28; Glucose 118 mg/dL (70-99); Lipase 17 U/L (16-77); Osmolality Calculated 274 mOsm/kg (285-295); Sodium 130 mmol/L (136-145); Total Protein 6.3 g/dL (6.4-8.2)
[2024-12-24 17:39] LABS: Toxigenic C. Diff NEGATIVE (NEGATIVE)
== END 2024-12-23 10:06 | disposition home or self-care (01) ==
PROVIDERS: PCP Family Medicine; Visit Provider Family Medicine
DX: R82.90 Unspecified abnormal findings in urine (principal); R10.9 Unspecified abdominal pain
CPT/HCPCS: 36415; 71046; 80053; 81001; 82150; 83690; 85025; 87045; 87086; 87181; 87186; 87427; 87449; 87493

== ENCOUNTER 2024-12-24 16:22 | Outpatient (CLI) | payer MEDICARE, SELFPAY ==
[2024-12-24 17:39] LABS: Toxigenic C. Diff NEGATIVE (NEGATIVE)
--- OUTSIDE RECORDS SUMMARY | 2024-12-24 17:45 | XMS_ITS | Encounter Summary ---
Author Organization [facility] Address [facility] [place] [address] Care Team Providers Care Clinical Educator Name Role Phone Alpesh Mead MD Primary Care Provider [phone] Tristan Hall MD Unavailable Unavailabl e Adenike Pleitez APRN, CLINICAL BIOSTATISTICIAN-C Unavailable Kathia Chen MD Unavailable Encounter Details Date Type Department Care Team (Late st Contact Info) Description 10/31/2023 MyChart Message Enc [facility] eld [address] [place] [address] Adenike Pleitez APRN, CLINICAL BIOSTATISTICIAN-C [address] [facility] [address] [place] [address] Labs Social History Tobacco Use Types Packs/Day Years Used Date Smoking Tobacco: Never Smokeless Tobacco: Never Comments Unknown Sex and Gender Information Value Date Recorded Sex Assigned at Female 11/14/2024 8:05 AM SHEET HEATER HELPER Legal Sex Female 4:56 PM CDT Gender Identity Not on file Sexual Orientation Not on file documented as of this encounter Plan of Treatment Upcoming Encounters Date Type Department Care Team (Late Contact Info) Description 10/30/2025 8:45 AM SHEET HEATER HELPER Office Visit [facility] [place] [address] Kathia Chen MD [address] [place] [address] documented as of this encounter Visit Diagnoses Not on filedocumented in this encounter Care Teams Clinical Educator Relationship Specialty Start Date End Date Alpesh Mead MD [address] [place] [address] PCP - General FAMILY PRACTICE 08/02/23 Tristan Hall MD [address] [place] [address] Consulting Physician CARDIOVASCULAR DISEASE 08/24/23 Adenike Pleitez, GUME, CLINICAL BIOSTATISTICIAN-C [address] [facility] [address] [place] [address] NURSE PRACTITIONER 08/24/23 02/05/24 Kathia Chen MD [address] [place] [address] Consulting Physician CARDIOVASCULAR DISEASE 02/06/24 documented as of this encounter
--- OUTSIDE RECORDS SUMMARY | 2024-12-24 17:45 | XMS_ITS | Encounter Summary ---
Author Organization [facility] Address [facility] [place] [address] Care Team Providers Care Call Center Dispatcher Name Role Phone Alpesh Mead MD Primary Care Provider [phone] Kathia Chen MD Unavailable Encounter Details Date Type Department Care Team (Late Contact Info) Description 05/13/2024 [employer] Message [facility] ie [address] [place] [phone] [facility] Provider Lab results Social History Tobacco Use Types Packs/Day Years Used Date Smoking Tobacco: Never Smokeless Tobacco: Never Alcohol Use Standard Drinks/Week Comments Not Currently 0 (1 standard drink = 0.6 oz pur e alcohol) Comments Unknown Sex and Gender Information Value Date Recorded Sex Assigned at Female 11/14/2024 8:05 AM GLOBAL SALES MANAGER Legal Sex Female 4:56 PM CDT Gender Identity Not on file Sexual Orientation Not on file documented as of this encounter Plan of Treatment Upcoming Encounters Date Type Department Care Team (Late Contact Info) Description 10/30/2025 8:45 AM GLOBAL SALES MANAGER Office Visit [facility] [place] [phone] Kathia Chen MD [address] [place], [place] [address] documented as of this encounter Visit Diagnoses Not on filedocumented in this encounter Care Teams Call Center Dispatcher Relationship Specialty Start Date End Date Alpesh Maed MD [address] [place] [address] PCP - General FAMILY PRACTICE 08/02/23 Kathia Chen MD [address] [place] [address] Consulting Physician CARDIOVASCULAR DISEASE 02/06/24 documented as of this encounter
--- OUTSIDE RECORDS SUMMARY | 2024-12-24 17:45 | XMS_ITS | Clinical Summary ---
Author Organization [facility] [address] Address [address] [place] [address] Care Team Providers Care Machine Stapler Name Role Phone Alpesh Mead MD Primary Care Provide r Allergies Active Allergy Reactions Criticality Noted Date Comments Codeine Other (See comments) Low 08/06/2024 Jittery/shaky Medications spironolactone (ALDACTONE) 50 mg tablet Take 1 tablet (50 mg total) by mouth daily Active df-kzt-bprct acid-lutein 400-250 mcg tablet,chewable Take by mouth Active calcium ckao-U0-ypxjczf um tony 133 mg calcium -133 unit-67 [...] Type Department Care Team Description 10/17/2024 Telephone [facility] Otolaryngology [address] [place] [phone] Alena Montoya LPN CTA head results [...] on file Legal Sex Female 6:25 PM BURNER MACHINE OPERATOR Gender Identity Not on file Sexual Orientation Not on file Obstetrics History Last Filed Vital Signs Vital Sign Reading Time Taken Comments Blood Pressure - - Pulse - - Temperature - - Respiratory Rate 18 08/06/2024 3:05 PM CDT Oxygen Saturation - - Inhaled Oxygen Concentration - - Weight 76.7 kg (169 lb) 08/28/2024 11:49 AM BURNER MACHINE OPERATOR Height 162.6 cm (5' 4 ) 08/28/2024 11:49 AM BURNER MACHINE OPERATOR Body Mass Index 29.01 08/28/2024 11:49 AM BURNER MACHINE OPERATOR Plan of Treatment Health Maintenance Due Date [...] 08/19/2022, Additional history exists Insurance [employer] MEDICARE Care Teams Machine Stapler Relationship Specialty Start Date End Date Alpesh Mead MD [address] [place] [address] PCP - General Family Medicine 07/21/24
--- OUTSIDE RECORDS SUMMARY | 2024-12-24 17:45 | XMS_ITS | Referral Summary ---
Author Organization [facility] [address] [place] Address [address] [place] [address] Care Team Providers Care Central Service Technician Name Role Phone Alpesh Mead MD Primary Care Provide r Encounters Date Type Department Care Team Description 10/17/[address] [facility] Otolaryngology [address] [place] [address] Alena Montoya LPN CTA head results and recommendations from Last 3 Months Allergies Active Allergy Reactions Criticality Noted Date Comments Codeine Other (See comments) Low 08/06/2024 Jittery/shaky Medications spironolactone (ALDACTONE) 50 mg tablet Take 1 tablet (50 mg total) by mouth daily Active vf-tya-tiwav acid-lutein 400-250 mcg tablet,chewable Take by mouth Active calcium crrk-P2-tokbdco um tony 133 mg calcium -133 unit-67 [...] on file Legal Sex Female 6:25 PM TAKE OUT WAITER Gender Identity Not on file Sexual Orientation Not on file Last Filed Vital Signs Vital Sign Reading Time Taken Comments Blood Pressure - - Pulse - - Temperature - - Respiratory Rate 18 08/06/2024 3:05 PM CDT Oxygen Saturation - - Inhaled Oxygen Concentration - - Weight 76.7 kg (169 lb) 08/28/2024 11:49 AM TAKE OUT WAITER Height 162.6 cm (5' 4 ) 08/28/2024 11:49 AM TAKE OUT WAITER Body Mass Index 29.01 08/28/2024 11:49 AM TAKE OUT WAITER Plan of Treatment Not on file Insurance [employer] MEDICARE Care Teams Central Service Technician Relationship Specialty Start Date End Date Alpesh Mead MD [address] [place] [address] PCP - General Family Medicine 07/21/24
--- OUTSIDE RECORDS SUMMARY | 2024-12-24 17:45 | XMS_ITS | Encounter Summary ---
Author Organization [facility] Address [facility] [place] [address] Care Team Providers Care Seal Delivery Vehicle Officer Name Role Phone Alpesh Mead MD Primary Care Provider [phone] Tristan Hall MD Unavailable Unavailabl e Adenike Pleitez APRN, ASSISTANT PROFESSOR OF PHILOSOPHY-C Unavailable Kathia Chen MD Unavailable Encounter Details Date Type Department Care Team (Latest Contact Info) Description 09/03/2023 [employer] Message Enc [facility] [address] [place] [address] Adenike Pleitez APRN, ASSISTANT PROFESSOR OF PHILOSOPHY-C [address] [facility] [address] [place] [address] My one week follow up on Spironolactone 25mg Social History Tobacco Use Types Packs/Day Years Used Date Smoking Tobacco: Never Smokeless Tobacco: Never Comments Unknown Sex and Gender Information Value Date Recorded Sex Assigned at Female 11/14/2024 8:05 AM SUMO WRESTLER Legal Sex Female 4:56 PM CDT Gender Identity Not on file Sexual Orientation Not on file documented as of this encounter Plan of Treatment Upcoming Encounters Date Type Department Care Team (Late st Contact Info) Description 10/30/2025 8:45 AM SUMO WRESTLER Office Visit [facility]-[address] [place] [address] Kathia Chen MD [address] [place] [address] documented as of this encounter Visit Diagnoses Not on filedocumented in this encounter Care Teams Seal Delivery Vehicle Officer Relationship Specialty Start Date End Date Alpesh Mead MD [address] [place] [address] PCP - General FAMILY PRACTICE 08/02/23 Tristan Hall MD [address] [place] [address] Consulting Physician CARDIOVASCULAR DISEASE 08/24/23 Adenike Pleitez APRN, ASSISTANT PROFESSOR OF PHILOSOPHY-C 9 [facility] [address] [address] NURSE PRACTITIONER 08/24/23 02/05/24 Kathia Chen MD [address] [place] [address] Consulting Physician CARDIOVASCULAR DISEASE 02/06/24 documented as of this encounter
--- OUTSIDE RECORDS SUMMARY | 2024-12-24 17:45 | XMS_ITS | Clinical Summary ---
Author Organization [facility] Address [address] [place] [address] Care Team Providers Care Farmer Diversified Crops Name Role Phone Alpesh Mead MD Primary Care Provider [phone] Kathia Ventura MD Unavailable Allergies Active Allergy [...] Department Care Team Description 11/14/2024 8:30 AM SWITCHBOARD WIRER Office Visit [facility] [address] [place] [phone] Kathia Ventura MD Heart Problem 11/14/2024 8:05 AM SWITCHBOARD WIRER - 11/14/2024 11:59 PM SWITCHBOARD WIRER [facility] [place] [address] Kathia Ventura MD Discharge Disposition: Home or Self Care (Routine Discharge) 11/14/2024 Travel 11/12/2024 Orders Only [facility] eld [address] [place] [address] Kathia Ventura MD 10/06/2024 1:08 PM SWITCHBOARD WIRER - 10/06/2024 11:59 PM SWITCHBOARD WIRER Hospital Encounter [place] [address] [place] [address] Edgard Pascal MD Discharge Disposition: Home or [...] Sex Assigned at Female 11/14/2024 8:05 AM SWITCHBOARD WIRER Legal Sex Female 4:56 PM CDT Gender Identity Not on file Sexual Orientation Not on file Last Filed Vital Signs Vital Sign Reading Time Taken Comments Blood Pressure 131/66 11/14/2024 11:47 AM SWITCHBOARD WIRER Pulse 76 11/14/2024 11:47 AM SWITCHBOARD WIRER Temperature - - Respiratory Rate 18 11/14/2024 11:47 AM SWITCHBOARD WIRER Oxygen Saturation 96% 11/14/2024 11:47 AM SWITCHBOARD WIRER Inhaled Oxygen Concentration - - Weight 79.8 kg (176 lb) 11/14/2024 11:47 AM SWITCHBOARD WIRER Height 162.6 cm (5' 4 ) 11/14/2024 11:47 AM SWITCHBOARD WIRER Body Mass Index 30.21 11/14/2024 11:47 AM SWITCHBOARD WIRER Plan of Treatment Upcoming Encounters Date Type Department Care Team (Late st Contact Info) Description 10/30/2025 8:45 AM SWITCHBOARD WIRER Office Visit [facility] [address] [place] [phone] Kathia Ventura MD [address] [place] [address] Health Maintenance Due Date Last [...] Comments ECG 12-LEAD Routine 11/14/2024 8:14 AM SWITCHBOARD WIRER Nonrheumatic mitral valve regurgitation Procedure Note - 11/14/2024 8:14 AM CSTThis note is in progress. [address] [place] [address] Test Date: 2024-11-14 Pat Name: LYNN ANGULO Department: 3 Room: Gender: Female Senior Financial Accountant: : 1950 Requested By: KATHIA VENTURA Order Number: [id number] Reading MD: Measurements Intervals [place] Rate: 75 P: 86 VT: 192 QRS: 84 QRSD: 75 T: 78 QT: 372 QTc: 416 Interpretive Statements SINUS RHYTHM WITH FREQUENT SUPRAVENTRICULAR PREMATURE COMPLEXES ABNORMAL RHYTHM ECG CTA HEAD Routine 10/06/2024 2:02 PM SWITCHBOARD WIRER Tinnitus of left ear Cavernous sinus syndrome from Last 3 Months Results * CTA HEAD (10/06/2024 2:02 PM SWITCHBOARD WIRER) Anatomical Region Laterality Modality Head Computed Tomogra phy 10/13/2024 8:49 AM SWITCHBOARD WIRER Impressions 10/13/2024 9:54 AM SWITCHBOARD WIRER IMPRESSION: Patent intracranial arterial vasculature. Ordered By: EDGARD PASCAL Interpreted By: Jacob Portillo MD, 10/13/2024 8:49 AM Narrative 10/13/2024 9:54 AM SWITCHBOARD WIRER [address] [place] [address] Examination: CTA HEAD, 10/06/2024 2:02 PM. Technique: [...] Procedure Note Jacob Portillo MD - 10/13/[address] [place] [address] Examination: CTA HEAD, 10/06/2024 2:02 PM. Technique: [...] Last 3 Months Insurance AETNA Care Teams Farmer Diversified Crops Relationship Specialty Start Date End Date Alpesh Mead MD [address] [place] [address] PCP - General FAMILY PRACTICE 08/02/23 Kathia Ventura MD [address] [place] [address] Consulting Physician CARDIOVASCULAR DISEASE 02/06/24
--- OUTSIDE RECORDS SUMMARY | 2024-12-24 17:45 | XMS_ITS | Encounter Summary ---
Author Organization [facility] Address [facility] [place] [address] Care Team Providers Care International Organizer Name Role Phone Alpesh Mead MD Primary Care Provider [phone] Kathia Chen MD Unavailable Encounter Details Date Type Department Care Team (Late Contact Info) Description 04/22/2024 Sabakat Message [facility] [address] [place] [phone] [facility] Provider echo Social History Tobacco Use Types Packs/Day Years Used Date Smoking Tobacco: Never Smokeless Tobacco: Never Alcohol Use Standard Drinks/Week Comments Not Currently 0 (1 standard drink = 0.6 oz pur e alcohol) Comments Unknown Sex and Gender Information Value Date Recorded Sex Assigned at Female 11/14/2024 8:05 AM WEDDING DECORATOR Legal Sex Female 4:56 PM CDT Gender Identity Not on file Sexual Orientation Not on file documented as of this encounter Plan of Treatment Upcoming Encounters Date Type Department Care Team (Late Contact Info) Description 10/30/2025 8:45 AM WEDDING DECORATOR Office Visit [facility] [place] [phone] Kathia Chen MD [address] [place] [address] documented as of this encounter Visit Diagnoses Not on filedocumented in this encounter Care Teams International Organizer Relationship Specialty Start Date End Date Alpesh Mead MD [address] [place] [address] PCP - General FAMILY PRACTICE 08/02/23 Kathia Chen MD [address] [place] [address] Consulting Physician CARDIOVASCULAR DISEASE 02/06/24 documented as of this encounter
--- OUTSIDE RECORDS SUMMARY | 2024-12-24 17:45 | XMS_ITS | Encounter Summary ---
Author Organization [facility] Address [facility] [place] [address] Care Team Providers Care Bar Host Name Role Phone Alpesh Mead MD Primary Care Provider [phone] Kathia Chen MD Unavailable Encounter Details Date Type Department Care Team (Latest Contact Info) Description 04/08/2024 MyChart Message Enc [facility] [address] [place] [address] Kathia Chen MD [address] [place] [address] Pulsatile Tinnitus Social History Tobacco Use Types Packs/Day Years Used Date Smoking Tobacco: Never Smokeless Tobacco: Never Comments Unknown Sex and Gender Information Value Date Recorded Sex Assigned at Female 11/14/2024 8:05 AM CLAIM AGENT Legal Sex Female 4:56 PM CDT Gender Identity Not on file Sexual Orientation Not on file documented as of this encounter Plan of Treatment Upcoming Encounters Date Type Department Care Team (Late st Contact Info) Description 10/30/2025 8:45 AM CLAIM AGENT Office Visit [facility] [address] Kathia Chen MD [address] [place] [address] documented as of this encounter Visit Diagnoses Not on filedocumented in this encounter Care Teams Bar Host Relationship Specialty Start Date End Date Alpesh Mead MD [address] [place], [place] [phone] PCP - General FAMILY PRACTICE 08/02/23 Kathia Chen MD [address] [place] [address] Consulting Physician CARDIOVASCULAR DISEASE 02/06/24 documented as of this encounter
--- OUTSIDE RECORDS SUMMARY | 2024-12-24 17:45 | XMS_ITS | Data Portability ---
Author Organization [facility], [address] [place] [address] [place]rology ([place]) Address [address] [place] [address] Care Team Providers Care Copy Editor Name Role Phone GUME MAHER Radiological Defense Officer DORIS LINO Radiological Defense Officer Assessment Encounter Date Assessment Date Assessment LastModified [...] Zoila left without further questions or concerns. [email or web address] Not available 05/27/2024 17:12:14 Plan of Treatment Reminders Order Date Submit Date Provider Last Modified By Organization Details Last Modified Time Details Appointments Establis [facility] Patient 10.EST 2024 10:50A M Dr. Dona Jones Not available Not available Not available Lab None recorded . Referral None recorded . Procedures None recorded . Surgeries None recorded . Imaging MAMMO, screenin g, digital, bilatera l 2023 025 [email or web address] Tn Only - Tn Radiology, [address] [place] [address], [address], 07/15/2024 12:50:39 Medication Orders clindamy curt 1 % topical gel 2023 024 [facility] 54 [facility], [address] [place], [address], 05/27/2024 17:11:22 Patient TargetsNo targets recorded. Patient Instructions Encounter Date Encounter Id Patient Instructions Last Modified By Organization Details Last Modified Time 07/15/2024 [id number] Pap smear guidelines discussed. No Pap smear [...] , scree esther, digit al, bilat eral [facility]st [address] [address] Teleph one [phone] Name: SAMANTHA HARDY [id number] am Date: 2023 Age: 74Phys ician: JORGE MAHER AMANDA : 1Ex aminat ion: MAMM BILATE RAL DIGITA L SCREEN ING EXAM: MAMM BILATE RAL DIGITA L SCREEN ING, MAMM SCREEN ING TOMOSY NTHESI S ACCESS ION: [id number], [id number] EXAM DATE: 024 10:45 AM HISTOR [...] Sc Only - Sc Radiology [address] [place] [address], [address], 07/15/2024 12:50:51 Result Notes None recorded. Problems Name Problem SNOMED Code Status Onset Date Resolution Date Notes Provider Name and Address Organization Details Recorded Time Epidermoid cyst 363191549 Active 024 Mitchel Zhang PA-C [address] [place] [address], [phone], [facility] 4 16:21:08 Acne 59918614 Active [address] [facility] 4 16:54:55 Osteopenia 673567279 Active 024 Gume Maher PA-C [address] [place] [address], [phone], [facility] 4 12:38:29 Heart murmur 89385761 Active 024 Gume Maher PA-C [address] [place] [address], [phone], [facility] 4 12:41:29 Problem Notes None recorded. Procedures Surgical History Date Name Laterality Status Provider Name and Address Organization Details Recorded Time Colonoscopy with biopsy completed Not Available Health Note 05/20/2024 17:41:53 biopsy of breast completed Gume Bowman [facility] 07/14/2024 20:05:30 Imaging Results Imaging Date Name Status LastModified by Organiz ation Details LastModified Time 07/15/2024 MAMMO, screening, digital, bilateral completed [address] Only - Tn Radiology [facility], [address], 07/15/2024 12:50:51 Procedure Notes None recorded. Medical Equipment None Reported. Allergies Allergen ID Allergen Name Allergen Category Reaction Reaction Severity Criticality Documentation Date Start Date Code Code System Note Provider Name and Address Organization Details Recorded Time 999438 codeine medicatio n Not available Not available [...] Updated DateTime 4 162.56 cm 29.5 kg/m2 54902.8 9 g 77 /min 99 % 99 % 156 mm[Hg] 76 mm[Hg] Kermit Flores [facility] 4 16:06:18 Date Recorded Body height Body mass index (BMI) Body weight Systolic blood pressure Diastolic blood pressure Provider Name and Address Organization Details Last Updated DateTime 07/15/2024 162.56 cm 29.5 kg/m2 54791.89 g 126 mm[Hg] 80 mm[Hg] Gume Bowman [facility] 4 11:35:05 Social History Question Answer Notes LastModified by Organizat ion Details LastModified Time Tobacco Smoking Status Never Smoker Gume Bowman [facility] 07/15/2024 11:31:59 Do You Have An Advance [...] Do You Have A Medical Power Of Client Relationship Manager? Yes [email or web address] Information not available 05/20/2024 What [...] neoplasm of female breast dx at 52 [email or web address] Not available 07/14/2024 20:07:03 Sister Malignant neoplasm of female breast dx at 63 [email or web address] Not available 07/14/2024 20:07:08 Father Diabetes mellitus [email or web address] Not available 07/14 20:05:45 Father Family history of cancer of colon [email or web address] Not available 07/14 20:05:55 Paternal Grandmother Malignant neoplasm of female breast dx in her 70's Not available 07/14/2024 20:06:42 Medical History Condition Response High Blood Pressure N COPD N Depression N Anxiety Disorder N Arthritis N Cancer N Stroke N Fibromyalgia N Kidney Disease N Attention-deficit Hyperactivity Disorder N Thyroid Problems N Anemia N Diabetes N Bleeding Disorder N Hyperlipidemia N Asthma N Seizures N Heart Disease N Osteoporosis N Gynecological HistoryNo gynecological history recorded. Obstetrics History GPAL:G 0 P 0 0 0 0 Past Encounters Encounter ID Performer Location Encounter Start Date Encounter Closed Date Diagnosis/Indication Diagnosis SNOMED-CT Code Diagnosis ICD10 Code Diagnosis Note [id number] ZOILA Patel [facility] ([place]) [address] [place] [address] [place] [address] 05/27/2024 15:50:31 05/27/2024 16:15:02 Epidermoid cyst 839935538 L72.0 Acne 52362327 L70.9 [id number] Doris Lino MD [address] [facility] OBG[place] ([place]) [address] [place] [address] 07/15/2024 11:27:12 07/15/2024 12:55:33 Routine gynecologic examination 402133319 Z01.419 Additional diagnosis detail: Women's annual routine gynecologi ileana examinatio n Screening mammography 24 938224 Z12.31 Additional diagnosis detail: Screening mammogram for breast cancer Health Concerns Section Related Observation LastModified by Organization Detai ls LastModified Time None Recorded Concern Status LastModified by Organization Details LastModified Time None Recorded Advance Directives Directive Y: Payers Encounter Date Sequence Insurance Name Policy Number Policy Navarrete Covered Member ID Navarrete Member ID Guarantor Name 05/27/2024 1 [employer] (MEDICARE REPLACEMENT PPO) [id number] Zoila Angulo [id number] Zoila Angulo 07/15/2024 1 [employer] (MEDICARE REPLACEMENT PPO) [id number] Zoila Angulo [id number] Zoila Angulo Notes Date Note Type Note [...] this note. Mitchel Zhang PA-C [address] [place] [address], [phone], [facility] 05/27/2024 17:12:35 07/15/2024 text/html Patient here for [...] Breast and Ovarian cancer screen: 3Changes in [facility] h/o since last HBOCS form was completed: No Last Mammogram: 07/15/2024Last Bone Density: 04/18/2016, osteopenia, 10 year follow upLast Colonoscopy: 2016 per patient Last pap: 03/25/2015 performed by: DANTE result: Negative, Negative HR HPVHistory of Abnormal pap: No History of Gestational Diabetes: NoHistory of Gestational Hypertension: No Hepatitis C: NoGardasil: N/A Gume Maher PA-C [address] [place] [address], [phone], [facility] 07/16/2024 08:37:42 OBGyn Episode No OBEpisode recorded.
--- OUTSIDE RECORDS SUMMARY | 2024-12-24 17:45 | XMS_ITS | Encounter Summary ---
Author Organization [facility] Address [facility] [place] [address] Care Team Providers Care Eastern Philosophy Professor Name Role Phone Alpesh Mead MD Primary Care Provider [phone] Kathia Chen MD Unavailable Encounter Details Date Type Department Care Team (Latest Contact Info) Description 04/29/2024 MyChart Message Enc [facility] [address] [place] [address] Kathia Chen MD [address] [place] [address] Results of my Blood Tests Social History Tobacco Use Types Packs/Day Years Used Date Smoking Tobacco: Never Smokeless Tobacco: Never Alcohol Use Standard Drinks/Week Comments Not Currently 0 (1 standard drink = 0.6 oz pur e alcohol) Comments Unknown Sex and Gender Information Value Date Recorded Sex Assigned at Female 11/14/2024 8:05 AM TACTICAL AIR CONTROL PARTY Legal Sex Female 4:56 PM CDT Gender Identity Not on file Sexual Orientation Not on file documented as of this encounter Plan of Treatment Upcoming Encounters Date Type Department Care Team (Late st Contact Info) Description 10/30/2025 8:45 AM TACTICAL AIR CONTROL PARTY Office Visit [facility] [address] [place] [address] Kathia Chen MD [address] [place] [address] documented as of this encounter Visit Diagnoses Not on filedocumented in this encounter Care Teams Eastern Philosophy Professor Relationship Specialty Start Date End Date Alpesh Mead MD [address] [place] [address] PCP - General FAMILY PRACTICE 08/02/23 Kathia Chen MD [address] [place] [address] Consulting Physician CARDIOVASCULAR DISEASE 02/06/24 documented as of this encounter
== END 2024-12-24 16:23 | disposition home or self-care (01) ==
LOC: CHSLAB 16:26
PROVIDERS: PCP Family Medicine; Visit Provider Family Medicine
DX: R10.9 Unspecified abdominal pain (principal); R19.7 Diarrhea, unspecified; R05.2 Subacute cough
CPT/HCPCS: 87045; 87427; 87449; 87493

== ENCOUNTER 2025-01-06 12:08 | Emergency (ER) | payer MEDICARE, SELFPAY ==
[2025-01-06 12:13] VITALS: BP 139/58; PULSE 85; RESP 16; TEMP 36.6; O2SAT 100
--- NOTE | 2025-01-06 13:34 | PC.NURSE ---
Patient observed leaving with out of ED- spoke previously about going to [facility] due to current wait time
--- OUTSIDE RECORDS SUMMARY | 2025-01-06 13:34 | XMS_ITS | Clinical Summary ---
Author Organization [facility] [address] [place] Address [address] [place] [address] Care Team Providers Care Haunted History Tour Guide Name Role Phone Alpesh Mead MD Primary Care Provide r Allergies Active Allergy Reactions Criticality Noted Date Comments Codeine Other (See comments) Low 08/06/2024 Jittery/shaky Medications spironolactone (ALDACTONE) 50 mg tablet Take 1 tablet (50 mg total) by mouth daily Active hs-eqb-klhwk acid-lutein 400-250 mcg tablet,chewable Take by mouth Active calcium qhup-Z9-concfmv um tony 133 mg calcium -133 unit-67 [...] Type Department Care Team Description 10/17/2024 Telephone [facility] Otolaryngology [address] [place] [address] Alena Montoya LPN CTA head results [...] on file Legal Sex Female 6:25 PM HOME RESTORATION SERVICE CLEANER Gender Identity Not on file Sexual Orientation Not on file Obstetrics History Last Filed Vital Signs Vital Sign Reading Time Taken Comments Blood Pressure - - Pulse - - Temperature - - Respiratory Rate 18 08/06/2024 3:05 PM CDT Oxygen Saturation - - Inhaled Oxygen Concentration - - Weight 76.7 kg (169 lb) 08/28/2024 11:49 AM HOME RESTORATION SERVICE CLEANER Height 162.6 cm (5' 4 ) 08/28/2024 11:49 AM HOME RESTORATION SERVICE CLEANER Body Mass Index 29.01 08/28/2024 11:49 AM HOME RESTORATION SERVICE CLEANER Plan of Treatment Health Maintenance Due Date [...] history exists Insurance AETNA MEDICARE Care Teams Haunted History Tour Guide Relationship Specialty Start Date End Date Alpesh Mead MD [address] [place] [address] PCP - General Family Medicine 07/21/24
--- OUTSIDE RECORDS SUMMARY | 2025-01-06 13:34 | XMS_ITS | Encounter Summary ---
Author Organization [facility] Address [facility] [place] [address] Care Team Providers Care Core Sucker Name Role Phone Alpesh Mead MD Primary Care Provider [phone] Tristan Hall MD Unavailable Unavailabl e Adenike Pleitez APRN, HEATER HELPER FORGE-C Unavailable Kathia Chen MD Unavailable Encounter Details Date Type Department Care Team (Late st Contact Info) Description 10/31/2023 MyChart Message Enc [facility] eld [address] [place] [address] Adenike Pleitez APRN, HEATER HELPER FORGE-C [address] [facility] [address] [place] [address] Labs Social History Tobacco Use Types Packs/Day Years Used Date Smoking Tobacco: Never Smokeless Tobacco: Never Comments Unknown Sex and Gender Information Value Date Recorded Sex Assigned at Female 11/14/2024 8:05 AM DITCH CLEANER Legal Sex Female 4:56 PM CDT Gender Identity Not on file Sexual Orientation Not on file documented as of this encounter Plan of Treatment Upcoming Encounters Date Type Department Care Team (Late Contact Info) Description 10/30/2025 8:45 AM DITCH CLEANER Office Visit [facility] [place] [address] Kathia Chen MD [address] [place] [address] documented as of this encounter Visit Diagnoses Not on filedocumented in this encounter Care Teams Core Sucker Relationship Specialty Start Date End Date Alpesh Mead MD [address] [place] [address] PCP - General FAMILY PRACTICE 08/02/23 Tristan Hall MD [address] [place] [address] Consulting Physician CARDIOVASCULAR DISEASE 08/24/23 Adenike Pleitez, GUME, HEATER HELPER FORGE-C 9 [facility] [address] [place] [address] NURSE PRACTITIONER 08/24/23 02/05/24 Kathia Chen MD [address] [place] [address] Consulting Physician CARDIOVASCULAR DISEASE 02/06/24 documented as of this encounter
--- OUTSIDE RECORDS SUMMARY | 2025-01-06 13:34 | XMS_ITS | Encounter Summary ---
Author Organization [facility] Address [facility] [place] [address] Care Team Providers Care Obstetrical Anesthesiologist Name Role Phone Alpesh Mead MD Primary Care Provider [phone] Kathia Chen MD Unavailable Encounter Details Date Type Department Care Team (Latest Contact Info) Description 04/08/2024 MyChart Message Enc [place] [facility] [address] [place] [address] Kathia Chen MD [address] [place] [address] Pulsatile Tinnitus Social History Tobacco Use Types Packs/Day Years Used Date Smoking Tobacco: Never Smokeless Tobacco: Never Comments Unknown Sex and Gender Information Value Date Recorded Sex Assigned at Female 11/14/2024 8:05 AM OFFICE MACHINE SERVICER APPRENTICE Legal Sex Female 4:56 PM CDT Gender Identity Not on file Sexual Orientation Not on file documented as of this encounter Plan of Treatment Upcoming Encounters Date Type Department Care Team (Late st Contact Info) Description 10/30/2025 8:45 AM OFFICE MACHINE SERVICER APPRENTICE Office Visit [facility] [address] Kathia Chen MD [address] [place] [address] documented as of this encounter Visit Diagnoses Not on filedocumented in this encounter Care Teams Obstetrical Anesthesiologist Relationship Specialty Start Date End Date Alpesh Mead MD [address] [place], [place] [phone] PCP - General FAMILY PRACTICE 08/02/23 Kathia Chen MD [address] [place] [address] Consulting Physician CARDIOVASCULAR DISEASE 02/06/24 documented as of this encounter
--- OUTSIDE RECORDS SUMMARY | 2025-01-06 13:34 | XMS_ITS | Clinical Summary ---
Author Organization [facility] Address [address] [place] [address] Care Team Providers Care Physiological Chemist Name Role Phone Alpesh Mead MD Primary Care Provider [phone] Kathia Ventura MD Unavailable Allergies Active Allergy Reactions Criticality Noted Date Comments Codeine GI Upset,Shakiness 08/24/2023 Medications tretinoin (RETIN-A) 0.1 % cream APPLY CREAM SPARINGLY TO AFFECTED AREA(S) ONCE DAILY AT BEDTIME. 03/13/20 23 Active spironolactone (ALDACTONE) 50 MG tablet Take 1 tablet by mouth once daily 90 tablet 3 01/03/20 25 Active spironolactone (ALDACTONE) 50 MG tablet Take 1 tablet by mouth once daily 90 tablet 10/06/20 24 025 Discontinued Active Problems Problem Noted Date Diagnosed Date Mitral regurgitation 08/24/2023 Encounters Date Type Department Care Team Description 11/14/2024 8:30 AM PROCUREMENT ANALYST Office Visit [facility] [address] [place] [address] Kathia Ventura MD Heart Problem 11/14/2024 8:05 AM PROCUREMENT ANALYST - 11/14/2024 11:59 PM PROCUREMENT ANALYST Hospital Encounter [facility] [address] [place] [address] Kathia Ventura MD Discharge Disposition: Home or Self Care (Routine Discharge) 11/14/2024 Travel 11/12/2024 Orders Only [facility] [address] [place] [address] Kathia Ventura MD from Last 3 Months Family History Medical [...] Sex Assigned at Female 11/14/2024 8:05 AM PROCUREMENT ANALYST Legal Sex Female 4:56 PM CDT Gender Identity Not on file Sexual Orientation Not on file Last Filed Vital Signs Vital Sign Reading Time Taken Comments Blood Pressure 131/66 11/14/2024 11:47 AM PROCUREMENT ANALYST Pulse 76 11/14/2024 11:47 AM PROCUREMENT ANALYST Temperature - - Respiratory Rate 18 11/14/2024 11:47 AM PROCUREMENT ANALYST Oxygen Saturation 96% 11/14/2024 11:47 AM PROCUREMENT ANALYST Inhaled Oxygen Concentration - - Weight 79.8 kg (176 lb) 11/14/2024 11:47 AM PROCUREMENT ANALYST Height 162.6 cm (5' 4 ) 11/14/2024 11:47 AM PROCUREMENT ANALYST Body Mass Index 30.21 11/14/2024 11:47 AM PROCUREMENT ANALYST Plan of Treatment Upcoming Encounters Date Type Department Care Team (Late st Contact Info) Description 10/30/2025 8:45 AM PROCUREMENT ANALYST Office Visit [facility] [place] [address] Kathia Ventura MD [address] [place] [address] Health Maintenance Due Date Last Done Comments [...] Comments ECG 12-LEAD Routine 11/14/2024 8:14 AM PROCUREMENT ANALYST Nonrheumatic mitral valve regurgitation Procedure Note - 11/14/2024 8:14 AM CSTThis note is in progress. [address] [place] [address] Test Date: 2024-11-14 Pat Name: LYNN ANGULO Department: 3 Room: Gender: Female Data Sme: : 1950 Requested By: KATHIA VENTURA Order Number: [id number] Reading MD: Measurements Intervals Stuart Rate: 75 P: 86 MA: 192 QRS: 84 QRSD: 75 T: 78 QT: 372 QTc: 416 Interpretive Statements SINUS RHYTHM WITH FREQUENT SUPRAVENTRICULAR PREMATURE COMPLEXES ABNORMAL RHYTHM ECG from Last 3 Months Insurance [employer] Care Teams Physiological Chemist Relationship Specialty Start Date End Date Alpesh Mead MD [address] [place] [address] PCP - General FAMILY PRACTICE 08/02/23 Kathia Ventura MD [address] [place] [address] Consulting Physician CARDIOVASCULAR DISEASE 02/06/24
--- OUTSIDE RECORDS SUMMARY | 2025-01-06 13:34 | XMS_ITS | Data Portability ---
Author Organization [facility], [address] [place] [address] Neurology (OR) Address [address] [place] [address] Care Team Providers Care Front Desk Name Role Phone GUME MAHER Power Lineworker DORIS LINO Power Lineworker Assessment Encounter Date Assessment Date Assessment LastModified [...] Zoila left without further questions or concerns. [email or web address] Not available 05/27/2024 17:12:14 Plan of Treatment Reminders Order Date Submit Date Provider Last Modified By Organization Details Last Modified Time Details Appointments Establis [facility] Patient 10.EST 2024 10:50A M Dr. Dona Jones Not available Not available Not available Lab None recorded . Referral None recorded . Procedures None recorded . Surgeries None recorded . Imaging MAMMO, screenin g, digital, bilatera l 2023 025 [email or web address] Co Only - Co Radiology, [address] [place] [address], [address], 07/15/2024 12:50:39 Medication Orders clindamy curt 1 % topical gel 2023 [facility] [address] [facility], [address] [place], [address], 05/27/2024 17:11:22 Patient TargetsNo targets recorded. Patient Instructions Encounter Date Encounter Id Patient Instructions Last Modified By Organization Details Last Modified Time 07/15/2024 [id number] Pap smear guidelines discussed. No Pap smear [...] , scree esther, digit al, bilat eral [facility] [address]st [address] [address] Teleph one [phone] Name: SAMANTHA HARDY [id number] am Date: 2023 Age: 74Phys ician: JORGE MAHER AMANDA : 1Ex aminat ion: MAMM BILATE RAL DIGITA L SCREEN ING EXAM: MAMM BILATE RAL DIGITA L SCREEN ING, MAMM SCREEN ING TOMOSY NTHESI S ACCESS ION: [id number], [id number] EXAM DATE: 024 10:45 AM HISTOR [...] Sc Only - [facility] Radiology [address] [place] [address], [address], 07/15/2024 12:50:51 Result Notes None recorded. Problems Name Problem SNOMED Code Status Onset Date Resolution Date Notes Provider Name and Address Organization Details Recorded Time Epidermoid cyst 854442982 Active 024 Mitchel Zhang PA-C [address] [place] [address], [phone], [facility] 4 16:21:08 Acne 05368770 Active 024 Kermit Flores [facility] 4 16:54:55 Osteopenia 716358772 Active 024 Gume Maher PA-C [address] [place] [address], [phone], [facility] 4 12:38:29 Heart murmur 32889124 Active 024 Gume Maher PA-C [address] [place] [address], [phone], [facility] 4 12:41:29 Problem Notes None recorded. Procedures Surgical History Date Name Laterality Status Provider Name and Address Organization Details Recorded Time Colonoscopy with biopsy completed Not Available Health Note 05/20/2024 17:41:53 biopsy of breast completed Gume Bowman [facility] 07/14/2024 20:05:30 Imaging Results Imaging Date Name Status LastModified by Organiz ation Details LastModified Time 07/15/2024 MAMMO, screening, digital, bilateral completed [address] Only - Co Radiology [facility], [address], 07/15/2024 12:50:51 Procedure Notes None recorded. Medical Equipment None Reported. Allergies Allergen ID Allergen Name Allergen Category Reaction Reaction Severity Criticality Documentation Date Start Date Code Code System Note Provider Name and Address Organization Details Recorded Time [id number] codeine medicatio n Not available Not available [...] Updated DateTime 4 162.56 cm 29.5 kg/m2 63336.8 9 g 77 /min 99 % 99 % 156 mm[Hg] 76 mm[Hg] Kermit Flores [facility] 4 16:06:18 Date Recorded Body height Body mass index (BMI) Body weight Systolic blood pressure Diastolic blood pressure Provider Name and Address Organization Details Last Updated DateTime 07/15/2024 162.56 cm 29.5 kg/m2 39419.89 g 126 mm[Hg] 80 mm[Hg] Gume Bowman [facility] 4 11:35:05 Social History Question Answer Notes LastModified by Organizat ion Details LastModified Time Tobacco Smoking Status Never Smoker Gume Bowman [facility] 07/15/2024 11:31:59 Do You Have [...] Do You Have A Medical Power Of Combat Systems Officer? Yes [email or web address] Information not available 05/20/2024 What [...] neoplasm of female breast dx at 52 [email or web address] Not available 07/14/2024 20:07:03 Sister Malignant neoplasm of female breast dx at 63 [email or web address] Not available 07/14/2024 20:07:08 Father Diabetes mellitus [email or web address] Not available 07/14 20:05:45 Father Family history of cancer of colon [email or web address] Not available 07/14 20:05:55 Paternal Grandmother Malignant neoplasm of female breast dx in her 70's [email or web address] Not available 07/14/2024 20:06:42 Medical History Condition Response Diabetes N Anxiety Disorder N Bleeding Disorder N Attention-deficit Hyperactivity Disorder N High Blood Pressure N Arthritis N Hyperlipidemia N Cancer N Stroke N Thyroid Problems N Asthma N Depression N COPD N Anemia N Seizures N Heart Disease N Fibromyalgia N Osteoporosis N Kidney Disease N Gynecological HistoryNo gynecological history recorded. Obstetrics History GPAL:G 0 P 0 0 0 0 Past Encounters Encounter ID Performer Location Encounter Start Date Encounter Closed Date Diagnosis/Indication Diagnosis SNOMED-CT Code Diagnosis ICD10 Code Diagnosis Note [id number] [facility] ([place]) [address] [place] [address] [place] [address] 05/27/2024 15:50:31 05/27/2024 16:15:02 Epidermoid cyst 328439548 L72.0 Acne 28039603 L70.9 [id number] Doris Lino MD 900 [facility] OBGYN ([place]) [address] [place] [address] 07/15/2024 11:27:12 07/15/2024 12:55:33 Routine gynecologic examination 246097517 Z01.419 Additional diagnosis detail: Women's annual routine gynecologi ileana examinatio n Screening mammography 24 558775 Z12.31 Additional diagnosis detail: Screening mammogram for breast cancer Health Concerns Section Related Observation LastModified by Organization Detai ls LastModified Time None Recorded Concern Status LastModified by Organization Details LastModified Time None Recorded Advance Directives Directive Y: Payers Encounter Date Sequence Insurance Name Policy Number Policy Navarrete Covered Member ID Navarrete Member ID Guarantor Name 05/27/2024 1 [employer] (MEDICARE REPLACEMENT PPO) [id number] Zoila Angulo [id number] Zoila Angulo 07/15/2024 1 [employer] (MEDICARE REPLACEMENT PPO) [id number] Zoila Angulo [id number] Zoila Angulo Notes Date Note Type Note [...] this note. Mitchel Zhang PA-C [address] [place] [address], [phone], [facility] 05/27/2024 17:12:35 07/15/2024 text/html Patient here for [...] Breast and Ovarian cancer screen: 3Changes in [facility] h/o since last HBOCS form was completed: No Last Mammogram: 07/15/2024Last Bone Density: 04/18/2016, osteopenia, 10 year follow upLast Colonoscopy: 2016 per patient Last pap: 03/25/2015 performed by: DANTE result: Negative, Negative HR HPVHistory of Abnormal pap: No History of Gestational Diabetes: NoHistory of Gestational Hypertension: No Hepatitis C: NoGardasil: N/A Gume Maher PA-C [address] [place] [address], [phone], [facility] 07/16/2024 08:37:42 OBGyn Episode No OBEpisode recorded.
--- OUTSIDE RECORDS SUMMARY | 2025-01-06 13:34 | XMS_ITS | Encounter Summary ---
Author Organization [facility] Address [place] [address] Care Team Providers Care Wrapping Machine Tender Name Role Phone Alpesh Mead MD Primary Care Provider [phone] Kathia Chen MD Unavailable Encounter Details Date Type Department Care Team (Late Contact Info) Description 05/13/2024 Image Searcher Message [facility] [address] [place] [address] [facility] Provider Lab results Social History Tobacco Use Types Packs/Day Years Used Date Smoking Tobacco: Never Smokeless Tobacco: Never Alcohol Use Standard Drinks/Week Comments Not Currently 0 (1 standard drink = 0.6 oz pur e alcohol) Comments Unknown Sex and Gender Information Value Date Recorded Sex Assigned at Female 11/14/2024 8:05 AM TORCH BRAZER Legal Sex Female 4:56 PM CDT Gender Identity Not on file Sexual Orientation Not on file documented as of this encounter Plan of Treatment Upcoming Encounters Date Type Department Care Team (Late Contact Info) Description 10/30/2025 8:45 AM TORCH BRAZER Office Visit [facility] [place] [address] Kathia Chen MD [address] [place], [place] [address] documented as of this encounter Visit Diagnoses Not on filedocumented in this encounter Care Teams Wrapping Machine Tender Relationship Specialty Start Date End Date Alpesh Mead MD [address] [place] [address] PCP - General FAMILY PRACTICE 08/02/23 Kathia Chen MD [address] [place] [address] Consulting Physician CARDIOVASCULAR DISEASE 02/06/24 documented as of this encounter
--- OUTSIDE RECORDS SUMMARY | 2025-01-06 13:34 | XMS_ITS | Referral Summary ---
Author Organization [facility] [address] Address [address] [place] [address] Care Team Providers Care Balloon Artist Name Role Phone Alpesh Mead MD Primary Care Provide r Encounters Date Type Department Care Team Description 10/17/2024 Telephone [facility] Otolaryngology [address] [place] [phone] Alena Montoya LPN CTA head results and recommendations from Last 3 Months Allergies Active Allergy Reactions Criticality Noted Date Comments Codeine Other (See comments) Low 08/06/2024 Jittery/shaky Medications spironolactone (ALDACTONE) 50 mg tablet Take 1 tablet (50 mg total) by mouth daily Active te-yqz-bfctr acid-lutein 400-250 mcg tablet,chewable Take by mouth Active calcium lrpu-W4-reznjcv um tony 133 mg calcium -133 unit-67 [...] on file Legal Sex Female 6:25 PM SCUDDING INSPECTOR Gender Identity Not on file Sexual Orientation Not on file Last Filed Vital Signs Vital Sign Reading Time Taken Comments Blood Pressure - - Pulse - - Temperature - - Respiratory Rate 18 08/06/2024 3:05 PM CDT Oxygen Saturation - - Inhaled Oxygen Concentration - - Weight 76.7 kg (169 lb) 08/28/2024 11:49 AM SCUDDING INSPECTOR Height 162.6 cm (5' 4 ) 08/28/2024 11:49 AM SCUDDING INSPECTOR Body Mass Index 29.01 08/28/2024 11:49 AM SCUDDING INSPECTOR Plan of Treatment Not on file Insurance [employer] MEDICARE Care Teams Balloon Artist Relationship Specialty Start Date End Date Alpesh Mead MD [address] [place] [address] PCP - General Family Medicine 07/21/24
--- OUTSIDE RECORDS SUMMARY | 2025-01-06 13:34 | XMS_ITS | Encounter Summary ---
Author Organization [facility] Address [facility] [place] [address] Care Team Providers Care Operator Helper Name Role Phone Alpesh Mead MD Primary Care Provider [phone] Kathia Chen MD Unavailable Encounter Details Date Type Department Care Team (Latest Contact Info) Description 04/29/2024 MyChart Message Enc [facility] [address] [place] [address] Kathia Chen MD [address] [place] [address] Results of my Blood Tests Social History Tobacco Use Types Packs/Day Years Used Date Smoking Tobacco: Never Smokeless Tobacco: Never Alcohol Use Standard Drinks/Week Comments Not Currently 0 (1 standard drink = 0.6 oz pur e alcohol) Comments Unknown Sex and Gender Information Value Date Recorded Sex Assigned at Female 11/14/2024 8:05 AM DENTAL INTERNSHIP Legal Sex Female 4:56 PM CDT Gender Identity Not on file Sexual Orientation Not on file documented as of this encounter Plan of Treatment Upcoming Encounters Date Type Department Care Team (Late st Contact Info) Description 10/30/2025 8:45 AM DENTAL INTERNSHIP Office Visit [facility] [address] [place] [address] Kathia Chen MD [address] [place] [address] documented as of this encounter Visit Diagnoses Not on filedocumented in this encounter Care Teams Operator Helper Relationship Specialty Start Date End Date Alpesh Mead MD [address] [place] [address] PCP - General FAMILY PRACTICE 08/02/23 Kathia Chen MD [address] [place] [address] Consulting Physician CARDIOVASCULAR DISEASE 02/06/24 documented as of this encounter
--- OUTSIDE RECORDS SUMMARY | 2025-01-06 13:34 | XMS_ITS | Encounter Summary ---
Author Organization [facility] Address [facility] [place] [address] Care Team Providers Care Skin Drier Name Role Phone Alpesh Mead MD Primary Care Provider [phone] Tristan Hall MD Unavailable Unavailabl e Adenike Pleitez APRN, PRODUCTION SUPPORT ENGINEER-C Unavailable Kathia Chen MD Unavailable Encounter Details Date Type Department Care Team (Latest Contact Info) Description 09/03/2023 [employer]nergy Pharm[employer] Message Enc [facility] [address] [place] [address] Adenike Pleitez APRN, PRODUCTION SUPPORT ENGINEER-C [address] [facility] [address] [place] [address] My one week follow up on Spironolactone 25mg Social History Tobacco Use Types Packs/Day Years Used Date Smoking Tobacco: Never Smokeless Tobacco: Never Comments Unknown Sex and Gender Information Value Date Recorded Sex Assigned at Female 11/14/2024 8:05 AM AUTOMOTIVE PARTS INTERPRETER Legal Sex Female 4:56 PM CDT Gender Identity Not on file Sexual Orientation Not on file documented as of this encounter Plan of Treatment Upcoming Encounters Date Type Department Care Team (Late st Contact Info) Description 10/30/2025 8:45 AM AUTOMOTIVE PARTS INTERPRETER Office Visit [facility] [place] [address] Kathia Chen MD [address] [place] [address] documented as of this encounter Visit Diagnoses Not on filedocumented in this encounter Care Teams Skin Drier Relationship Specialty Start Date End Date Alpesh Mead MD [address] [place] [address] PCP - General FAMILY PRACTICE 08/02/23 Tristan Hall MD [address] [place] [address] Consulting Physician CARDIOVASCULAR DISEASE 08/24/23 Adenike Pleitez APRN, PRODUCTION SUPPORT ENGINEER-C 9 [facility] [address] [address] NURSE PRACTITIONER 08/24/23 02/05/24 Kathia Chen MD [address] [place] [address] Consulting Physician CARDIOVASCULAR DISEASE 02/06/24 documented as of this encounter
--- OUTSIDE RECORDS SUMMARY | 2025-01-06 13:34 | XMS_ITS | Encounter Summary ---
Author Organization [facility] Address [facility] [place] [address] Care Team Providers Care Manager Reimbursement Name Role Phone Alpesh Mead MD Primary Care Provider [phone] Kathia Chen MD Unavailable Encounter Details Date Type Department Care Team (Late Contact Info) Description 04/22/2024 Groove Message [facility] [address] [place] [address] [facility], [facility] Provider echo Social History Tobacco Use Types Packs/Day Years Used Date Smoking Tobacco: Never Smokeless Tobacco: Never Alcohol Use Standard Drinks/Week Comments Not Currently 0 (1 standard drink = 0.6 oz pur e alcohol) Comments Unknown Sex and Gender Information Value Date Recorded Sex Assigned at Female 11/14/2024 8:05 AM DECK BUILDER Legal Sex Female 4:56 PM CDT Gender Identity Not on file Sexual Orientation Not on file documented as of this encounter Plan of Treatment Upcoming Encounters Date Type Department Care Team (Late Contact Info) Description 10/30/2025 8:45 AM DECK BUILDER Office Visit [facility] [place] [address] Kathia Chen MD [address] [place] [address] documented as of this encounter Visit Diagnoses Not on filedocumented in this encounter Care Teams Manager Reimbursement Relationship Specialty Start Date End Date Alpesh Mead MD [address] [place] [address] PCP - General FAMILY PRACTICE 08/02/23 Kathia Chen MD [address] [place] [address] Consulting Physician CARDIOVASCULAR DISEASE 02/06/24 documented as of this encounter
--- OUTSIDE RECORDS SUMMARY | 2025-01-06 15:05 | XMS_ITS | Encounter Summary ---
Author Organization [facility] Address [facility] [place] [address] Care Team Providers Care Radiographer Mammographer Name Role Phone Alpesh Mead MD Primary Care Provider [phone] Kathia Chen MD Unavailable Encounter Details Date Type Department Care Team (Latest Contact Info) Description 04/29/2024 MyChart Message Enc [facility] [address] [place] [address] Kathia Chen MD [address] [place] [address] Results of my Blood Tests Social History Tobacco Use Types Packs/Day Years Used Date Smoking Tobacco: Never Smokeless Tobacco: Never Alcohol Use Standard Drinks/Week Comments Not Currently 0 (1 standard drink = 0.6 oz pur e alcohol) Comments Unknown Sex and Gender Information Value Date Recorded Sex Assigned at Female 11/14/2024 8:05 AM COLOR COATER Legal Sex Female 4:56 PM CDT Gender Identity Not on file Sexual Orientation Not on file documented as of this encounter Plan of Treatment Upcoming Encounters Date Type Department Care Team (Late st Contact Info) Description 10/30/2025 8:45 AM COLOR COATER Office Visit [facility] [address] [place] [address] Kathia Chen MD [address] [place] [address] documented as of this encounter Visit Diagnoses Not on filedocumented in this encounter Care Teams Radiographer Mammographer Relationship Specialty Start Date End Date Alpesh Mead MD [address] [place] [address] PCP - General FAMILY PRACTICE 08/02/23 Kathia Chen MD [address] [place] [address] Consulting Physician CARDIOVASCULAR DISEASE 02/06/24 documented as of this encounter
--- OUTSIDE RECORDS SUMMARY | 2025-01-06 15:05 | XMS_ITS | Encounter Summary ---
Author Organization [facility] Address [facility] [place] [address] Care Team Providers Care Deputy Attorney General Name Role Phone Alpesh Mead MD Primary Care Provider [phone] Kathia Chen MD Unavailable Encounter Details Date Type Department Care Team (Latest Contact Info) Description 04/08/2024 MyChart Message Enc [facility] [address] [place] [address] Kathia Chen MD [address] [place] [address] Pulsatile Tinnitus Social History Tobacco Use Types Packs/Day Years Used Date Smoking Tobacco: Never Smokeless Tobacco: Never Comments Unknown Sex and Gender Information Value Date Recorded Sex Assigned at Female 11/14/2024 8:05 AM DIRECTOR SCHOOL FOR BLIND Legal Sex Female 4:56 PM CDT Gender Identity Not on file Sexual Orientation Not on file documented as of this encounter Plan of Treatment Upcoming Encounters Date Type Department Care Team (Late st Contact Info) Description 10/30/2025 8:45 AM DIRECTOR [employer]CHOOL FOR BL[employer] Office Visit [facility] [address] Kathia Chen MD [address] [place] [address] documented as of this encounter Visit Diagnoses Not on filedocumented in this encounter Care Teams Deputy Attorney General Relationship Specialty Start Date End Date Alpesh Mead MD [address] [place], [place] [address] PCP - General FAMILY PRACTICE 08/02/23 Kathia Chen MD [address] [place] [address] Consulting Physician CARDIOVASCULAR DISEASE 02/06/24 documented as of this encounter
--- OUTSIDE RECORDS SUMMARY | 2025-01-06 15:05 | XMS_ITS | Encounter Summary ---
Author Organization [facility] Address [facility] [place] [address] Care Team Providers Care Heat Treat Inspector Name Role Phone Alpesh Mead MD Primary Care Provider [phone] Kathia Chen MD Unavailable Encounter Details Date Type Department Care Team (Late Contact Info) Description 04/22/2024 [employer] Message [employer] [facility] [address] [place] [phone] [facility] Provider echo Social History Tobacco Use Types Packs/Day Years Used Date Smoking Tobacco: Never Smokeless Tobacco: Never Alcohol Use Standard Drinks/Week Comments Not Currently 0 (1 standard drink = 0.6 oz pur e alcohol) Comments Unknown Sex and Gender Information Value Date Recorded Sex Assigned at Female 11/14/2024 8:05 AM REGULATORY CONSULTANT Legal Sex Female 4:56 PM CDT Gender Identity Not on file Sexual Orientation Not on file documented as of this encounter Plan of Treatment Upcoming Encounters Date Type Department Care Team (Late Contact Info) Description 10/30/2025 8:45 AM REGULATORY CONSULTANT Office Visit [facility] [place] [phone] Kathia Chen MD [address] [place] [address] documented as of this encounter Visit Diagnoses Not on filedocumented in this encounter Care Teams Heat Treat Inspector Relationship Specialty Start Date End Date Alpesh Mead MD [address] [place] [address] PCP - General FAMILY PRACTICE 08/02/23 Kathia Chen MD [address] [place] [address] Consulting Physician CARDIOVASCULAR DISEASE 02/06/24 documented as of this encounter
--- OUTSIDE RECORDS SUMMARY | 2025-01-06 15:05 | XMS_ITS | Encounter Summary ---
Author Organization [facility] Address [facility] [place] [address] Care Team Providers Care Turpentine Farmer Name Role Phone Alpesh Mead MD Primary Care Provider [phone] Tristan Hall MD Unavailable Unavailabl e Adenike Pleitez APRN, PLATE CONDITIONER-C Unavailable Kathia Chen MD Unavailable Encounter Details Date Type Department Care Team (Latest Contact Info) Description 09/03/2023 [employer] Message Enc [facility] [address] [place] [address] Adenike Pleitez APRN, PLATE CONDITIONER-C [address] [facility] [address] [place] [address] My one week follow up on Spironolactone 25mg Social History Tobacco Use Types Packs/Day Years Used Date Smoking Tobacco: Never Smokeless Tobacco: Never Comments Unknown Sex and Gender Information Value Date Recorded Sex Assigned at Female 11/14/2024 8:05 AM HEAT SET OPERATOR Legal Sex Female 4:56 PM CDT Gender Identity Not on file Sexual Orientation Not on file documented as of this encounter Plan of Treatment Upcoming Encounters Date Type Department Care Team (Late st Contact Info) Description 10/30/2025 8:45 AM HEAT SET OPERATOR Office Visit [facility] [place] [address] Kathia Chen MD [address] [place] [address] documented as of this encounter Visit Diagnoses Not on filedocumented in this encounter Care Teams Turpentine Farmer Relationship Specialty Start Date End Date Alpesh Mead MD [address] [place] [address] PCP - General FAMILY PRACTICE 08/02/23 Tristan Hall MD [address] [place] [address] Consulting Physician CARDIOVASCULAR DISEASE 08/24/23 Adenike Pleitez APRN, PLATE CONDITIONER-C 9 [facility] [address] [address] NURSE PRACTITIONER 08/24/23 02/05/24 Kathia Chen MD [address] [place] [address] Consulting Physician CARDIOVASCULAR DISEASE 02/06/24 documented as of this encounter
--- OUTSIDE RECORDS SUMMARY | 2025-01-06 15:05 | XMS_ITS | Encounter Summary ---
Author Organization [facility] Address [facility] [place] [address] Care Team Providers Care Health Care Technician Name Role Phone Alpesh Mead MD Primary Care Provider [phone] Kathia Chen MD Unavailable Encounter Details Date Type Department Care Team (Late Contact Info) Description 05/13/2024 [employer] Message [facility] [address] [place] [phone] [facility] Provider Lab results Social History Tobacco Use Types Packs/Day Years Used Date Smoking Tobacco: Never Smokeless Tobacco: Never Alcohol Use Standard Drinks/Week Comments Not Currently 0 (1 standard drink = 0.6 oz pur e alcohol) Comments Unknown Sex and Gender Information Value Date Recorded Sex Assigned at Female 11/14/2024 8:05 AM IDENTITY ACCESS MANAGEMENT ARCHITECT Legal Sex Female 4:56 PM CDT Gender Identity Not on file Sexual Orientation Not on file documented as of this encounter Plan of Treatment Upcoming Encounters Date Type Department Care Team (Late Contact Info) Description 10/30/2025 8:45 AM IDENTITY ACCESS MANAGEMENT ARCHITECT Office Visit [facility] [place] [phone] Kathia Chen MD [address] [place], [place] [address] documented as of this encounter Visit Diagnoses Not on filedocumented in this encounter Care Teams Health Care Technician Relationship Specialty Start Date End Date Alpesh Mead MD [address] [place] [address] PCP - General FAMILY PRACTICE 08/02/23 Kathia Chen MD [address] [place] [address] Consulting Physician CARDIOVASCULAR DISEASE 02/06/24 documented as of this encounter
--- OUTSIDE RECORDS SUMMARY | 2025-01-06 15:05 | XMS_ITS | Encounter Summary ---
Author Organization [facility] Address [facility] [place] [address] Care Team Providers Care Tool Grinder Operator Surface Name Role Phone Alpesh Mead MD Primary Care Provider [phone] Tristan Hall MD Unavailable Unavailabl e Adenike Pleitez APRN, REGIONAL ECONOMIST-C Unavailable Kathia Chen MD Unavailable Encounter Details Date Type Department Care Team (Late st Contact Info) Description 10/31/2023 MyChart Message Enc [facility] eld [address] [place] [address] Adenike Pleitez APRN, REGIONAL ECONOMIST-C [address] [facility] [address] [place] [address] Labs Social History Tobacco Use Types Packs/Day Years Used Date Smoking Tobacco: Never Smokeless Tobacco: Never Comments Unknown Sex and Gender Information Value Date Recorded Sex Assigned at Female 11/14/2024 8:05 AM LARRY CAR OPERATOR Legal Sex Female 4:56 PM CDT Gender Identity Not on file Sexual Orientation Not on file documented as of this encounter Plan of Treatment Upcoming Encounters Date Type Department Care Team (Late Contact Info) Description 10/30/2025 8:45 AM LARRY CAR OPERATOR Office Visit [facility] [place] [address] Kathia Chen MD [address] [place] [address] documented as of this encounter Visit Diagnoses Not on filedocumented in this encounter Care Teams Tool Grinder Operator Surface Relationship Specialty Start Date End Date Alpesh Mead MD [address] [place] [address] PCP - General FAMILY PRACTICE 08/02/23 Tristan Hall MD [address] [place] [address] Consulting Physician CARDIOVASCULAR DISEASE 08/24/23 Adenike Pleitez, GUME, REGIONAL ECONOMIST-C [address] [facility] [address] [place] [address] NURSE PRACTITIONER 08/24/23 02/05/24 Kathia Chen MD [address] [place] [address] Consulting Physician CARDIOVASCULAR DISEASE 02/06/24 documented as of this encounter
--- OUTSIDE RECORDS SUMMARY | 2025-01-06 15:05 | XMS_ITS | Clinical Summary ---
Author Organization [facility] [address] Address [address] [place] [address] Care Team Providers Care Scraper Loader Operator Name Role Phone Alpesh Mead MD Primary Care Provide r Allergies Active Allergy Reactions Criticality Noted Date Comments Codeine Other (See comments) Low 08/06/2024 Jittery/shaky Medications spironolactone (ALDACTONE) 50 mg tablet Take 1 tablet (50 mg total) by mouth daily Active ed-gss-stfsg acid-lutein 400-250 mcg tablet,chewable Take by mouth Active calcium dhlq-Z0-jrxytwy um tony 133 mg calcium -133 unit-67 [...] Type Department Care Team Description 10/17/2024 Telephone [facility] Otolaryngology [address] [place] [phone] Alena Montoya LPN CTA head results [...] on file Legal Sex Female 6:25 PM MUSHROOM PACKER Gender Identity Not on file Sexual Orientation Not on file Obstetrics History Last Filed Vital Signs Vital Sign Reading Time Taken Comments Blood Pressure - - Pulse - - Temperature - - Respiratory Rate 18 08/06/2024 3:05 PM CDT Oxygen Saturation - - Inhaled Oxygen Concentration - - Weight 76.7 kg (169 lb) 08/28/2024 11:49 AM MUSHROOM PACKER Height 162.6 cm (5' 4 ) 08/28/2024 11:49 AM MUSHROOM PACKER Body Mass Index 29.01 08/28/2024 11:49 AM MUSHROOM PACKER Plan of Treatment Health Maintenance Due Date [...] history exists Insurance [employer] MEDICARE Care Teams Scraper Loader Operator Relationship Specialty Start Date End Date Alpesh Mead MD [address] [place] [address] PCP - General Family Medicine 07/21/24
--- OUTSIDE RECORDS SUMMARY | 2025-01-06 15:05 | XMS_ITS | Referral Summary ---
Author Organization [facility] [address] [place] Address [address] [place] [address] Care Team Providers Care Labor Standards Director Name Role Phone Alpesh Mead MD Primary Care Provide r Encounters Date Type Department Care Team Description 10/17/2024 Telephone [facility] Otolaryngology [address] [place] [address] Alena Montoya LPN CTA head results and recommendations from Last 3 Months Allergies Active Allergy Reactions Criticality Noted Date Comments Codeine Other (See comments) Low 08/06/2024 Jittery/shaky Medications spironolactone (ALDACTONE) 50 mg tablet Take 1 tablet (50 mg total) by mouth daily Active zn-pza-bloig acid-lutein 400-250 mcg tablet,chewable Take by mouth Active calcium hhga-J2-xhgeave um tony 133 mg calcium -133 unit-67 [...] on file Legal Sex Female 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 PM CARRIER ASSOCIATE Gender Identity Not on file Sexual Orientation Not on file Last Filed Vital Signs Vital Sign Reading Time Taken Comments Blood Pressure - - Pulse - - Temperature - - Respiratory Rate 18 08/06/2024 3:05 PM CDT Oxygen Saturation - - Inhaled Oxygen Concentration - - Weight 76.7 kg (169 lb) 08/28/2024 11:49 AM CARRIER ASSOCIATE Height 162.6 cm (5' 4 ) 08/28/2024 11:49 AM CARRIER ASSOCIATE Body Mass Index 29.01 08/28/2024 11:49 AM CARRIER ASSOCIATE Plan of Treatment Not on file Insurance [employer] MEDICARE Care Teams Labor Standards Director Relationship Specialty Start Date End Date Alpesh Mead MD [address] [place] [address] PCP - General Family Medicine 07/21/24
--- OUTSIDE RECORDS SUMMARY | 2025-01-06 15:05 | XMS_ITS | Clinical Summary ---
Author Organization [facility] Address [address] [place] [address] Care Team Providers Care Freight Car Loader Name Role Phone Alpesh Mead MD Primary Care Provider [phone] Kathia Ventura MD Unavailable Allergies Active Allergy [...] Department Care Team Description 11/14/2024 8:30 AM COST COORDINATOR Office Visit [facility] [address] [place] [address] Kathia Ventura MD Heart Problem 11/14/2024 8:05 AM COST COORDINATOR - 11/14/2024 11:59 PM COST COORDINATOR Hospital Encounter [facility] [address] [place] [address] Kathia Ventura MD Discharge Disposition: Home or Self Care (Routine Discharge) 11/14/2024 Travel 11/12/2024 Orders Only [facility] [address] [place] [address] Kathia Ventura MD from Last 3 Months [...] Sex Assigned at Female 11/14/2024 8:05 AM COST COORDINATOR Legal Sex Female 4:56 PM CDT Gender Identity Not on file Sexual Orientation Not on file Last Filed Vital Signs Vital Sign Reading Time Taken Comments Blood Pressure 131/66 11/14/2024 11:47 AM COST COORDINATOR Pulse 76 11/14/2024 11:47 AM COST COORDINATOR Temperature - - Respiratory Rate 18 11/14/2024 11:47 AM COST COORDINATOR Oxygen Saturation 96% 11/14/2024 11:47 AM COST COORDINATOR Inhaled Oxygen Concentration - - Weight 79.8 kg (176 lb) 11/14/2024 11:47 AM COST COORDINATOR Height 162.6 cm (5' 4 ) 11/14/2024 11:47 AM COST COORDINATOR Body Mass Index 30.21 11/14/2024 11:47 AM COST COORDINATOR Plan of Treatment Upcoming Encounters Date Type Department Care Team (Late st Contact Info) Description 10/30/2025 8:45 AM COST COORDINATOR Office [facility] [place] [address] Kathia Ventura MD [address] [place] [address] Health Maintenance Due Date Last Done Comments [...] Comments ECG 12-LEAD Routine 11/14/2024 8:14 AM COST COORDINATOR Nonrheumatic mitral valve regurgitation Procedure Note - 11/14/2024 8:14 AM CSTThis note is in progress. [address] [place] [address] Test Date: 2024-11-14 Pat Name: LYNN ANGULO Department: 3 Room: Gender: Female Co Director: : 1950 Requested By: KATHIA VENTURA Order Number: [id number] Reading MD: Measurements Intervals [place] Rate: 75 P: 86 WA: 192 QRS: 84 QRSD: 75 T: 78 QT: 372 QTc: 416 Interpretive Statements SINUS RHYTHM WITH FREQUENT SUPRAVENTRICULAR PREMATURE COMPLEXES ABNORMAL RHYTHM ECG from Last 3 Months Insurance [employer] Care Teams Freight Car Loader Relationship Specialty Start Date End Date Alpesh Mead MD [address] [place] [address] PCP - General FAMILY PRACTICE 08/02/23 Kathia Ventura MD [address] [place] [address] Consulting Physician CARDIOVASCULAR DISEASE 02/06/24
== END 2025-01-06 13:44 | disposition left against medical advice (07) ==
PROVIDERS: PCP Family Medicine
DX: R53.1 Weakness (principal)
CPT/HCPCS: 99199